=== PATIENT | male | born 1945 | race Caucasian/White ===

== ENCOUNTER 2017-07-20 10:39 | Outpatient (CLI) | payer MEDICARE, BC ==
--- NOTE | 2017-07-20 13:02 | RAD ---
TWO VIEWS CHEST: Date: 07-20-17 Comparison: 07-12-16, 01-12-17 History: Dyspnea. FINDINGS: There is a hazy area of increased density overlying the left hilar shadow, worsening when compared to prior imaging. This is suspicious for a mass in the superior segment of the left lower lobe. Midline sternotomy wires are present. There is increased linear interstitial density. There is no lobar cons olidation, alveolar edema, or pleural fluid. IMPRESSION: Increasing left perihilar density is suspicious for a mass in the region of the superior segment left lower lobe. CT examination of the chest is advised. Dr. Downs made aware at 10:55 a.m. 07-20-17. Code CR POS: ANA
== END 2017-07-20 10:40 | disposition home or self-care (01) ==
LOC: RAD 10:39
PROVIDERS: ATTEND Internal Medicine Pulmonary Disease
DX: R06.00 Dyspnea, unspecified (principal); J98.4 Other disorders of lung
CPT/HCPCS: 71046

== ENCOUNTER 2017-07-26 12:25 | Outpatient (CLI) | payer MEDICARE, BC ==
[2017-07-26 12:58] LABS: Estimated GFR-MDRD - POC Greater than 90
[2017-07-26] MEDS ORDERED: Iopamidol 370 76% 100 ML VIAL ONE (14:47)
--- NOTE | 2017-07-26 14:49 | CT ---
CT CHEST WITH CONTRAST: INDICATIONS: Recent chest film from 07/20/2017 revealed increased density overlying the left hilar region. The reena bustillo also has a history of left lung cancer, which was followed by this PET scan. COMPARISON: PET CT from 09/30/2015. TECHNIQUE: Multiple axial tomograms obtained through the chest with IV enhancement. FINDINGS: There is an enlarging mass, which is pleural-based, at the posterior left mid lung. This is at the s ite of a previously described pulmonary mass noted on the PET CT of 09/30/2015. The mass at that osman e showed very little activity on PET, with an SUV of 1.8. It measured approximately 1.7 cm in width, in the axial plane, at that time. Today, this mass density has enlarged, measuring 3.4 x 2.3 cm, in the axial plane. Review of the lung jiang show numerous small pulmonary nodules, several of which appear to be calcif ied. These tiny nodules are most numerous in the right upper lobe and measure in the 1 to 3 mm range . These tiny nodules were present on the prior CT of 09/30/2015 but are better seen and characterize d today. There are other scattered tiny nodules throughout both lung jiang, although these nodules appear most numerous in the right lung. There is a new area of ground glass nodular opacity, measuring 1.8 cm in the axial plane, located in the right upper lobe, today. This is suspicious for a new focus of neoplasm. There is a nodule in the right middle lobe, which measures approximately 5 mm. This small nodule is stable when compared to the prior CT. There are nonspecific mediastinal lymph nodes. These appear stable from the prior exam. The thyroid is mildly prominent, and there are several small thyroid nodules. The right lobe of the thyroid is larger than the left. The thyroid findings appear stable. Images through the upper abdomen reveal hepatic cysts in the mid right lobe, which is a stable findin g. A large right renal cyst is partially imaged, and this is a stable finding. Sliding diaphragmati c hernia. There appears to be mesenteric fat herniated through the diaphragm, along the right side o f the lower esophagus, and there is a fluid dense area seen abutting the lower esophagus, on the righ t, of uncertain significance. IMPRESSION: 1. A pleural-based mass in the mid left chest, posteriorly, has increased in size when compared to P ET CT exam of 09/30/2015. This is concerning for neoplasm. 2. There is a new ground glass nodular density in the right upper lobe, measuring 1.8 cm, suspicious for neoplasm. 3. Numerous small pulmonary nodules are again noted, which appear stable. 4. Sliding diaphragmatic hernia. Mesenteric fat herniates along the right side of the lower esophag us, and there is an area of fluid density adjacent to the lower esophagus, on the right, within this mesenteric fat. 5. There are other stable findings, as described above. POS: ANA
== END 2017-07-26 12:26 | disposition home or self-care (01) ==
LOC: CT 12:25
PROVIDERS: ATTEND Internal Medicine Pulmonary Disease
DX: R91.8 Other nonspecific abnormal finding of lung field (principal); K44.9 Diaphragmatic hernia without obstruction or gangrene
CPT/HCPCS: 71260; 82565

== ENCOUNTER 2017-08-04 12:23 | Outpatient (CLI) | payer MEDICARE, BC ==
--- NOTE | 2017-08-04 16:06 | PET ---
PET CT: 08/04/17 HISTORY: 72-year-old male with lung cancer, abnormal CT scan. TECHNIQUE: PET scan with CT attenuation correction was performed from the base of the brain to the proximal thig hs following the intravenous administration of 13 millicuries of O89-torzbdivcdoywlknae in the right antecubital fossa. Imaging was performed after an uptake interval of 43 minutes. COMPARISON: PET CT dated 10/01/15. CORRELATION: CT chest dated 07/26/17. FINDINGS: There is interval development of hypermetabolic activity seen in the enlarging left lower lobe mass s een on the CT scan with an SUV of 6.5. No milan hypermetabolism is seen in the hilar regions, mediast inum, axillary, cervical, abdominopelvic or inguinal regions. No hypermetabolic liver, adrenal or skeletal lesions are seen. There is physiologic activity in the GI and tracts and the visualized portions of the brain. The CT scan used for attenuation correction demonstrates no evidence of pleural effusions or ascites. A right sided renal cyst is present. There is colonic diverticulosis. IMPRESSION: Left lung malignancy. No evidence of metastatic disease. POS: [facility]
== END 2017-08-04 12:24 | disposition home or self-care (01) ==
LOC: PET 12:23
PROVIDERS: ATTEND Internal Medicine Pulmonary Disease
DX: R91.8 Other nonspecific abnormal finding of lung field (principal); C34.32 Malignant neoplasm of lower lobe, left bronchus or lung
CPT/HCPCS: 78815; A9552

== ENCOUNTER 2017-08-12 15:20 | Outpatient (CLI) | payer MEDICARE, BC ==
[2017-08-12 16:37] LABS: Hemoglobin 14.5 g/dL (14.0-18.0); Mean Corpuscular HGB CONC 33.8 g/dL (32.0-36.0); Mean Corpuscular Hemoglobin 32.6 pg (27.0-31.0); Mean Corpuscular Volume 96.4 fl (80.0-94.0); Mean Platelet Volume 8.3 fL (7.4-10.4); Platelet Count 220 thou/uL (130-400); RBC Distribution Width 11.8 % (11.5-14.5); Red Blood Cell (RBC) Count 4.44 mill/uL (4.70-6.10); White Blood Cell (WBC) Count 7.8 thou/uL (4.8-10.8)
[2017-08-12 16:57] LABS: Anion Gap 9 mmol/L (10-20); BUN (Urea Nitrogen) 13 mg/dL (8.4-25.7); Calc. Creatinine Clearance 0 mL/min (70-130); Calcium 9.4 mg/dL (7.8-10.44); Carbon Dioxide 30 mmol/L (23-31); Chloride 105 mmol/L (98-107); Estimated GFR-MDRD Greater than 90; Glucose 90 mg/dL (80-115); Potassium 4.2 mmol/L (3.5-5.1); Sodium 140 mmol/L (136-145)
--- NOTE | 2017-12-13 21:44 | EKG ---
Test Reason : Blood Pressure : / mmHG Vent. Rate : 069 BPM Atrial Rate : 069 BPM P-R Int : 152 ms QRS Dur : 086 ms QT Int : 410 ms P-R-T Axes : 054 032 052 degrees QTc Int : 439 ms Normal sinus rhythm Possible Inferior infarct , age undetermined Abnormal ECG Confirmed by RIGOBERTO CORREA, GAUTAM ([id number]) on 12/13/2017 9:44:03 PM Referred By: ELLEN Confirmed By:GAUTAM FRANKLIN MD
== END 2017-08-12 15:21 | disposition home or self-care (01) ==
LOC: LABBT 15:20
PROVIDERS: ATTEND Thoracic Surgery (Cardiothoracic Vascular Surgery)
DX: Z01.818 Encounter for other preprocedural examination (principal); R91.8 Other nonspecific abnormal finding of lung field
CPT/HCPCS: 80048; 85027; 86850; 86900; 86901; 93005; 93010

== ENCOUNTER 2017-08-12 15:30 | Inpatient (IN) | payer MEDICARE, BC ==
[2017-08-16] MEDS ORDERED: CEFAZOLIN/Water 2 GM/20 ML SYRINGE ONE (05:56)
[2017-08-16] MEDS ORDERED: Fentanyl 100 MCG/2 ML VIAL ONE ×3 (06:14→10:24)
[2017-08-16] MEDS ORDERED: Midazolam HCl 2 mg/2 ml Vial ONE (06:14)
[2017-08-16] MEDS ORDERED: Fentanyl 250 MCG/5 ML VIAL ONE (06:18)
[2017-08-16] MEDS ORDERED: Naloxone HCl 0.4 mg/ml Vial IVP PRN (07:00)
[2017-08-16] MEDS ORDERED: fentaNYL Citrate/PF 1,250 MCG, Bupivacaine 25 ML in Sodium Chloride 0.9% 250 ML 200 ML EPIDURAL SCH (07:00)
[2017-08-16] MEDS ORDERED: Naloxone HCl 0.4 mg/ml Vial IV PRN (07:00)
[2017-08-16] MEDS ORDERED: diphenhydrAMINE 25 MG CAP PO PRN (07:00)
[2017-08-16] MEDS ORDERED: Zolpidem Tartrate 5 MG TAB PO PRN (07:00)
[2017-08-16] MEDS ORDERED: Bupivacaine 0.25% 10 ML VIAL EPIDURAL PRN (07:00)
[2017-08-16] MEDS ORDERED: Ondansetron HCl/PF 4 MG/2 ML Vial IVP PRN ×3 (07:00→11:52)
[2017-08-16] MEDS ORDERED: HYDROcodone/Acetaminophen 5/325 mg Tablet PO PRN ×3 (07:00→11:52)
[2017-08-16] MEDS ORDERED: diphenhydrAMINE 50 MG/ML VIAL IVP PRN (07:00)
[2017-08-16] MEDS ORDERED: Promethazine HCl 25 MG/ML VIAL IM PRN ×2 (07:00→09:43)
[2017-08-16] MEDS ORDERED: Promethazine HCl 25 MG SUPP PR PRN (07:00)
[2017-08-16] MEDS ORDERED: traMADol HCl 50 MG TAB PO PRN ×2 (07:00)
[2017-08-16] MEDS ORDERED: Hydrocerin (Eucerin) Cream 120 gm Jar TOP PRN (07:00)
[2017-08-16] MEDS ORDERED: diphenhydrAMINE 50 MG/ML VIAL IM PRN (07:00)
[2017-08-16] MEDS ORDERED: Bupivacaine/Epinephrine 0.25% 30 ML VIAL ONE (09:12)
[2017-08-16] MEDS ORDERED: Promethazine HCl 25 MG/ML VIAL SLOW IVP PRN (09:43)
--- NOTE | 2017-08-16 11:30 | PRG ---
DATE OF SERVICE: 08/16/2017 This is a 72-year-old gentleman status post left lower lobectomy with lymph node dissection for slowl y growing left lower lung superior segment mass. Initial biopsy shows adenocarcinoma. Awaiting shayy bowers. He is in the recovery room having some pain. He has an epidural catheter in place. PHYSICAL EXAMINATION: VITAL SIGNS: Pulse is 80, sats are 95%, blood pressure 138/80. CHEST: Minimal rhonchi. CARDIAC: Normal S1-S2. No gallops. ABDOMEN: Soft, no mass. IMPRESSION: 1. Former smoker. 2. Left lower lung lobectomy. 3. Coronary artery disease. 4. Diabetes. 5. Anxiety. PLAN: Continue pain relief, supportive care. Await final path report. I will follow.
[2017-08-16] MEDS ORDERED: Promethazine HCl 25 MG/ML VIAL IM/IV PRN (11:52)
[2017-08-16] MEDS ORDERED: Insulin Regular 300 UNITS/3 ML VIAL SC PRN (11:52)
[2017-08-16] MEDS: Ketorolac Tromethamine 30 MG/ML VIAL IVP SCH ×2 (11:59→18:22)
--- NOTE | 2017-08-16 12:15 | OP ---
PREOPERATIVE DIAGNOSIS: Left lower lobe mass. POSTOPERATIVE DIAGNOSIS: Adenocarcinoma of the lung. PROCEDURE: Left lower lobectomy, mediastinal lymph node dissection. SURGEON: Dr. Butler. ESTIMATED BLOOD LOSS: Less than 100. ANESTHESIA: General. FINDINGS: Patient had a confined mass in the left lower lobe but no adherence between that lung and the chest wall. He had a few filmy adhesions at the apex of the chest related to previous left inter nal mammary artery harvesting. He did have a hard and mediastinal node at the level 4 that was adher ent, but not growing into the recurrent laryngeal nerve. PROCEDURE IN DETAIL: After adequate anesthesia had been obtained, patient was prepped and draped in the right lateral decubitus position and a muscle-sparing posterolateral fifth intercostal space thor acotomy was carried out. This was the level of fissure. The inferior pulmonary ligament was mobiliz ed, there were no nodes in this area. Fissure was then completed with Bovie. A vascular stapler was used to take the major arterial branch to the lower lobe and then two smaller branches were ligated and clipped these being about 2 mm to 3 mm max. Following this, the inferior pulmonary vein was divi ded with vascular stapler. Bronchus was then controlled with a green staple load and after ensuring good inflation of the upper lobe, the bronchus was divided. Following this, mediastinal node dissect ion was carried out. A pleural flap was created superiorly. Chest tube x2 were placed. Following t his, the ribs were reapproximated with double-stranded catgut suture after ensuring no air leakage fr om bronchial stump. After good hemostasis was obtained, the pericostal sutures were tied. Muscle la yers loosely reapproximated and the subcutaneous tissue and skin closed. Patient is to be taken to t he recovery room in guarded condition.
[2017-08-16] MEDS: HYDROcodone/Acetaminophen 5/325 mg Tablet PO PRN ×3 (12:46→22:51)
--- NOTE | 2017-08-16 13:48 | RAD ---
RADIOGRAPH CHEST 1 VIEW: Date: 08/16/2017 Time: 11:27 a.m. HISTORY: A 72-year-old male, status post thoracotomy. COMPARISON: 07/20/2017 FINDINGS: Again noted are the sternotomy wires. There are two new left-sided chest tubes, entering at the left base. One of the distal tips overlies the left mid to lower mediastinum, while the other ascends to the left upper mediastinal region. No pulmonary edema. There is new thickening of the left lateral pleural stripe, consistent with fluid. No consolidation. No pneumothorax visible. IMPRESSION: 1. Status post placement of two left-sided chest tubes. 2. Small amount of left pleural fluid. DONTE [] POS: ANA
[2017-08-16] MEDS: CEFAZOLIN/Water 2 GM/20 ML SYRINGE SLOW IVP SCH ×2 (14:09→21:42)
[2017-08-16] MEDS ORDERED: ePHEDrine/0.9% NaCl/PF SYRINGE 50 mg/10 ml ONE (16:08)
[2017-08-16] MEDS ORDERED: PHENYLEPHRINE-NS 100 MCG/ML 10 ML SYRINGE ONE (16:08)
[2017-08-16] MEDS ORDERED: Glycopyrrolate 0.2 MG/ML 5 ML SYRINGE ONE (16:08)
[2017-08-16] MEDS ORDERED: Dexamethasone 20 MG/5 ML VIAL ONE (16:08)
[2017-08-16] MEDS ORDERED: Lidocaine 1% PF 5 ML VIAL ONE (16:08)
[2017-08-16] MEDS ORDERED: PROPOFOL 200 MG/20 ML VIAL ONE (16:08)
[2017-08-16] MEDS ORDERED: Labetalol 100 MG/20 ML MDV ONE (16:08)
[2017-08-16] MEDS: Sodium Chloride 0.9% 1,000 ML IV SCH ×2 (18:07→21:48)
[2017-08-16] MEDS: ALPRAZolam 0.25 MG TAB PO SCH (21:43)
[2017-08-16] MEDS: Aspirin 81 mg Enteric Coated Tablet PO SCH (21:43)
[2017-08-17] MEDS: Ketorolac Tromethamine 30 MG/ML VIAL IVP SCH ×5 (00:19→23:03)
[2017-08-17 05:01] LABS: #Lymphocytes 1.3 thou/uL (1.20-3.40); #Monocytes 1.5 thou/uL (0.11-0.59); #Neutrophils 10.7 thou/uL (1.40-6.50); %Basophils 0.1 % (0.0-1.0); %Eosinophils 0.1 % (0.0-10.0); %Lymphocytes 9.7 % (21.0-51.0); %Monocytes 11.4 % (0.0-10.0); %Neutrophils 78.8 % (42.0-75.0); Hemoglobin 13.8 g/dL (14.0-18.0); Mean Corpuscular Hemoglobin 33.5 pg (27.0-31.0); Mean Corpuscular Volume 98.5 fl (80.0-94.0); Platelet Count 211 thou/uL (130-400); RBC Distribution Width 11.9 % (11.5-14.5); Red Blood Cell (RBC) Count 4.13 mill/uL (4.70-6.10); White Blood Cell (WBC) Count 13.6 thou/uL (4.8-10.8)
[2017-08-17 05:03] LABS: Anion Gap 11 mmol/L (10-20); BUN (Urea Nitrogen) 13 mg/dL (8.4-25.7); Calc. Creatinine Clearance 106 mL/min (70-130); Calcium 8.2 mg/dL (7.8-10.44); Carbon Dioxide 28 mmol/L (23-31); Chloride 105 mmol/L (98-107); Estimated GFR-MDRD Greater than 90; Glucose 130 mg/dL (80-115); Potassium 4.6 mmol/L (3.5-5.1); Sodium 139 mmol/L (136-145)
[2017-08-17] MEDS: CEFAZOLIN/Water 2 GM/20 ML SYRINGE SLOW IVP SCH (06:38)
[2017-08-17] MEDS: ALPRAZolam 0.25 MG TAB PO SCH ×2 (08:22→20:57)
[2017-08-17] MEDS: Metoprolol Tartrate 25 MG TAB PO SCH ×2 (08:23→21:03)
[2017-08-17] MEDS: Venlafaxine HCl 37.5 MG TAB PO SCH (08:23)
--- NOTE | 2017-08-17 09:16 | RAD ---
PORTABLE AP CHEST: Date: 08/17/17 HISTORY: Post thoracotomy. COMPARISON: 08/16/17. FINDINGS: Two left-sided thoracostomy tubes remain in place and unchanged in position. No pleural fluid is seen on the left. There is minimal pleural based density along the left lateral chest wall which may be r elated to mild pleural thickening. There is atelectasis present at the right lung base. Cardiac silho uette is magnified by projection, but does appear mildly enlarged. Pulmonary vasculature is within no rmal limits. Postsurgical changes related to median sternotomy are again seen. Metallic wires overlie the right chest. Chest is not significantly changed when compared to the prior exam. IMPRESSION: 1. Left-sided thoracostomy tubes remain unchanged in position. 2. Atelectasis right lung base with questionable tiny right pleural effusion. POS: [facility]
--- NOTE | 2017-08-17 11:16 | PRG ---
DATE OF SERVICE: 08/17/2017 SUBJECTIVE: This morning, he is doing well. Awake, alert and responsive. Chest x-ray is clear. He denies any pain or discomfort. OBJECTIVE: VITAL SIGNS: Blood pressure is 124/77, sats are 98% on room air, pulse 108, temperature 98. CHEST: Reveals no wheezing or crackles. CARDIAC: Normal S1, S2. No gallops. ABDOMEN: No masses. LABORATORY DATA: White count 0.5. IMPRESSION: Status post right lower lobectomy, former smoker. PLAN: Awaiting path. Transferred out of the ICU. Continue to follow.
[2017-08-17] MEDS ORDERED: Enoxaparin Sodium 30 MG/0.3 ML SYRINGE SC SCH ×2 (14:00→15:00)
[2017-08-17] MEDS: HYDROcodone/Acetaminophen 5/325 mg Tablet PO PRN (14:18)
[2017-08-17] MEDS: Aspirin 81 mg Enteric Coated Tablet PO SCH (20:57)
[2017-08-18] MEDS: Ketorolac Tromethamine 30 MG/ML VIAL IVP SCH (05:15)
[2017-08-18] MEDS ORDERED: Metoprolol Tartrate 25 MG TAB PO SCH ×2 (06:26→06:45)
[2017-08-18] MEDS: Metoprolol Tartrate 25 MG TAB PO SCH ×2 (09:44→20:23)
[2017-08-18] MEDS: Enoxaparin Sodium 30 MG/0.3 ML SYRINGE SC SCH (09:53)
[2017-08-18] MEDS: ALPRAZolam 0.25 MG TAB PO SCH ×2 (09:53→20:23)
[2017-08-18] MEDS: Venlafaxine HCl 37.5 MG TAB PO SCH (09:53)
--- NOTE | 2017-08-18 10:10 | PRG ---
DATE OF SERVICE: 08/18/2017 This morning he is awake, alert, responsive, still short of breath, still coughing some stuff, still having some pain. PHYSICAL EXAMINATION: VITAL SIGNS: Blood pressure 130/70, sats 90 on 2 liters . His temperature 98, pulse 109. CHEST: C hest reveals no wheezing or crackles. CARDIAC: Normal S1, S2. No gallops. ABDOMEN: Soft. His CT chest tube was not draining much fluid, his path shows adenocarcinoma with evidence of several lymph nodes that are involved. IMPRESSION: Left lower lung adenocarcinoma with a left hilar lymph node involvement along with a vis ceral pleural invasion. PLAN: Continue PT and supportive care. Hopefully, when stable outpatient referral to Oncology.
[2017-08-18] MEDS ORDERED: HYDROcodone/Acetaminophen 10/325 mg Tablet PO PRN ×2 (13:00→13:01)
[2017-08-18] MEDS ORDERED: Fentanyl 100 MCG/2 ML VIAL SLOW IVP PRN (13:01)
[2017-08-18] MEDS ORDERED: PARoxetine 20 MG TAB PO SCH ×2 (18:30→19:00)
[2017-08-18] MEDS ORDERED: BEER 1 CAN PO SCH (19:00)
[2017-08-18] MEDS: Aspirin 81 mg Enteric Coated Tablet PO SCH (20:23)
[2017-08-19] MEDS: ALPRAZolam 0.25 MG TAB PO SCH (08:48)
[2017-08-19] MEDS: BEER 1 CAN PO SCH ×2 (08:48→14:59)
[2017-08-19] MEDS: Enoxaparin Sodium 30 MG/0.3 ML SYRINGE SC SCH (08:50)
[2017-08-19] MEDS: Metoprolol Tartrate 25 MG TAB PO SCH (08:51)
[2017-08-19] MEDS ORDERED: PARoxetine 20 MG TAB PO SCH (09:00)
--- NOTE | 2017-08-19 09:39 | PRG ---
DATE OF SERVICE: 08/19/2017 He is awake, alert, responsive. PHYSICAL EXAMINATION: VITAL SIGNS: Blood pressure is 123/73, sats are 97% on room air, respiration 17, temperature 97. CHEST: Chest reveals decreased breath sounds, no wheezing. CARDIAC: Normal S1-S2. ABDOMEN: Soft, no masses. IMPRESSION: 1. The patient is status post left lower lobectomy adenocarcinoma with a hilar mets. 2. Coronary artery disease. PLAN: He appears to be stable enough to be discharged home. He will see us in the office in several weeks. Eventually Oncology consult.
[2017-08-19] MEDS: Venlafaxine HCl 37.5 MG TAB PO SCH (10:21)
[2017-08-19 16:25] VITALS: BMI 26.1
[2017-08-19 16:26] VITALS: BP 136/66; TEMP 98.1
--- NOTE | 2017-08-19 21:30 | DIS ---
This is a gentleman who underwent a left lower lobe lung resection, found to have moderate to poorly differentiated adenocarcinoma involving the visceral pleura with lymphovascular invasion. He had fou r lymph nodes out of 10 examined that had metastatic carcinoma including a level 4 mediastinal node, being a [id number] clinical stage and pathologic stage. His hospital course was unremarkable except for some confusion and chest tubes were removed on the day of discharge. He will follow up with myself and Dr. Downs in 2 weeks with the ultimate plan to have him evaluated by the Oncology Service.
== END 2017-08-19 17:07 | disposition home or self-care (01) | DRG 164 ==
LOC: SURG A 08-16 05:42 → CCU 08-16 11:34 → 2NO 08-17 10:28
PROVIDERS: ADMIT Thoracic Surgery (Cardiothoracic Vascular Surgery); ATTEND Thoracic Surgery (Cardiothoracic Vascular Surgery)
PROC: 0BTJ0ZZ Resection of Left Lower Lung Lobe, Open Approach (ICD-10-PCS; principal; 2017-08-16)
PROC: 07B70ZZ Excision of Thorax Lymphatic, Open Approach (ICD-10-PCS; 2017-08-16)
DX: C34.32 Malignant neoplasm of lower lobe, left bronchus or lung (principal); C77.1 Secondary and unspecified malignant neoplasm of intrathoracic lymph nodes; C78.2 Secondary malignant neoplasm of pleura; E11.9 Type 2 diabetes mellitus without complications; I25.10 Atherosclerotic heart disease of native coronary artery without angina pectoris; F17.210 Nicotine dependence, cigarettes, uncomplicated; F41.9 Anxiety disorder, unspecified
CPT/HCPCS: 36415; 36416; 71045; 80048; 85025; 88305; 88309; 88331; 88332; 94640; A4216; G8978-GP-CK; G8979-GP-CH; J1100; J1642; J1650; J1885; J2001; J2250; J2550; J2704; J3010; J3490; J7050; J7620

== ENCOUNTER 2017-11-01 07:48 | Outpatient (CLI) | payer MEDICARE, BC ==
--- NOTE | 2017-11-01 11:16 | CT ---
NONCONTRAST ENHANCED CT ABDOMEN AND PELVIS: HISTORY: The patient has a history of lung cancer, weight loss, and gastroesophageal reflux disease (R63.4 and K21.9). TECHNIQUE: Oral contrast was given. IV contrast was not given. FINDINGS: Noncontrast enhanced CT images of the abdomen and pelvis are obtained, as IV contrast was not given. Oral contrast was given. Images demonstrate a small left-sided pleural effusion. Some minimal areas of left pleural thickenin g are seen. The right lung base is well aerated. There is a large hiatal hernia. There is some mild thickening of the distal esophagus, compatible wi th likely esophagitis. The solid organs demonstrate a limited evaluation, as IV contrast was not given. There does appear t o be a hypodense area at the medial aspect of the left hepatic lobe, diameter measuring approximately 13 mm. This may represent a cyst. The pancreas is unremarkable. The adrenal glands are unremarkable. There is also an exophytic hypodense area at the upper posterior aspect of the right kidney, most com patible with a cortical cyst, diameter measuring 4 cm. No evidence of paraaortic lymphadenopathy is seen. There is a small umbilical hernia. No dilated loops of small bowel seen. A normal appendix is seen. Numerous descending colonic diverticula are visualized. Findings compatible with diverticulosis. No evidence of inguinal hernia seen. Atherosclerotic calcification of the abdominal aorta is seen. IMPRESSION: 1. Hiatal hernia. 2. Hypodense area seen in the liver and right kidney, most compatible with cyst. 3. Descending colonic diverticulosis. 4. Umbilical hernia. POS: [facility]
== END 2017-11-01 07:49 | disposition home or self-care (01) ==
LOC: CT 07:48
PROVIDERS: ATTEND Internal Medicine Hematology & Oncology
DX: K21.9 Gastro-esophageal reflux disease without esophagitis (principal); R63.4 Abnormal weight loss; K44.9 Diaphragmatic hernia without obstruction or gangrene; K42.9 Umbilical hernia without obstruction or gangrene; K57.30 Diverticulosis of large intestine without perforation or abscess without bleeding
CPT/HCPCS: 74176

== ENCOUNTER 2017-11-02 12:41 | Outpatient (CLI) | payer MEDICARE, BC ==
[~2017-11-02 12:41] MED LIST: Iopamidol 370 76% 100 ML VIAL ONE
[2017-11-02 13:27] LABS: Estimated GFR-MDRD - POC Greater than 90
--- NOTE | 2017-11-02 14:56 | CT ---
CT THORAX WITH IV CONTRAST: INDICATIONS: History of malignant neoplasm of the left lower lobe. COMPARISON: Prior CT thorax dated 07/26/[address] dated 09/30/2015. Comparisons are also made with a CT ne ck dated 09/18/2015. FINDINGS: Since the comparison examination, there has been interval performance of a left lower lobectomy. A s mall amount of pleural fluid is seen within the left lower hemithorax, consistent with the patient's recent postop state. There is some slight soft tissue nodularity seen within the left pleural fat on image 32 of series 6, which may be postoperative in nature; however, residual regional metastatic di sease cannot be entirely excluded. Ground glass pulmonary nodule within the right upper lobe is stab le to the comparison, dated 07/26/2017, measuring 1.9 x 2.1 cm in its greatest mediolateral and crani ocaudal dimensions, respectively. There is scattered emphysema. There are scattered calcified pulmonary nodules, suspicious for granul yimi. Noncalcified pulmonary nodule within the region of the lower right upper lobe, on image 32 of s eries 6, is stable, measuring 5 mm. There is a stable small to moderate sized hiatal hernia. Small right hepatic lobe/right renal cyst is stable. No definite acute osseous abnormality is evident. IMPRESSION: 1. Interval left lower lobectomy. 2. Small left-sided pleural effusion, likely post procedural in nature. 3. There is studded nodularity seen along the left pleural space, along the posterolateral aspect of the left hemithorax, which may be postoperative in nature; however, residual pleural-based metastati c disease cannot be entirely excluded. Recommend close followup. 4. Ground glass pulmonary nodule within the right upper lobe is stable, measuring 1.9 x 2.1 cm, to t he most recent comparison, dated 07/26/2017. 5. Stable 5 mm right upper lobe pulmonary nodule. 6. Stable hiatal hernia. right hepatic lobe/right renal cyst. Findings were called to Dr. Ward at 2:20 p.m. on 11/02/2017. CODE CR POS: [facility]
== END 2017-11-02 12:42 | disposition home or self-care (01) ==
LOC: SCSCT 12:41
PROVIDERS: ATTEND Internal Medicine Hematology & Oncology
DX: C34.32 Malignant neoplasm of lower lobe, left bronchus or lung (principal); J90 Pleural effusion, not elsewhere classified; R91.1 Solitary pulmonary nodule; K44.9 Diaphragmatic hernia without obstruction or gangrene; N28.1 Cyst of kidney, acquired; Z90.2 Acquired absence of lung [part of]
CPT/HCPCS: 71260; 82565

== ENCOUNTER 2018-05-29 15:37 | Outpatient (CLI) | payer MEDICARE, BC ==
--- NOTE | 2018-05-29 16:44 | RAD ---
CHEST TWO VIEWS: HISTORY: Adenocarcinoma, left lung. Check for pneumonia. Cough x2 weeks. COMPARISON: 08/17/2017 FINDINGS: Near complete opacification of the left lung. Subsequent limited evaluation of the left heart border . Chronic changes of right lung with mild hyperinflation is suggested. No pneumothorax or osseous a bnormality. IMPRESSION: Near complete opacification of the left lung. Findings may be secondary to tumor with associated pos t obstructive atelectasis and/or pneumonia. CT chest if clinically warranted. CODE T POS: ANA
== END 2018-05-29 15:38 | disposition home or self-care (01) ==
LOC: BICRAD 15:37
PROVIDERS: ATTEND Family Medicine
DX: C34.92 Malignant neoplasm of unspecified part of left bronchus or lung (principal); R91.8 Other nonspecific abnormal finding of lung field; Z11.59 Encounter for screening for other viral diseases; I10 Essential (primary) hypertension; R73.03 Prediabetes; E78.5 Hyperlipidemia, unspecified
CPT/HCPCS: 36415; 71046; 80053; 80061; 83036; 83880; 85025; 86803

== ENCOUNTER 2018-05-30 12:52 | Outpatient (CLI) | payer MEDICARE, BC ==
--- NOTE | 2018-05-30 14:42 | CT ---
CT OF CHEST PERFORMED WITH INTRAVENOUS CONTRAST ENHANCEMENT: HISTORY: Adenocarcinoma of left lung with development of opacification of the left hemithorax. COMPARISON: Previous CT study of 11/02/2017. FINDINGS: There has been a definite progression of disease as compared to the prior examination. There are now multiple right-sided pulmonary nodules present. Most of these are subcentimeter in size. One of th e larger lesions is approximately 11 mm in size within the right lower lobe. There is no right-sided effusion present. On the left side, there is now essentially complete opacification of the left hemithorax. The patien t had previously undergone a left lower lobe lobectomy. There is now a combination of collapse of th e left upper lobe and what appears to be consolidated lung which probably just represents tumor. There has been interval slight increase in size of some of the mediastinal lymph nodes. This is best seen in the right paratracheal region where there are some nodes that were in the 6 mm range on the prior examination now measuring 8-9 mm. Postop sternotomy changes are present. A cyst within the do me of the liver is a stable finding. Hiatal hernia is again seen. Review of osseous structures shows some arthritic changes of the spine. No lytic or blastic bony l esion seen. IMPRESSION: The patient is status post a left lower lobe lobectomy. There has now been development of a very l arge left pleural effusion occupying the entire left hemithorax. There is collapsed and consolidated -appearing lung which probably represents tumor infiltration within the residual lung tissue. There are also now multiple right-sided pulmonary nodules present and slight increase in size of some of th e mediastinal lymph nodes. POS: [facility]
== END 2018-05-30 12:53 | disposition home or self-care (01) ==
LOC: SCSCT 12:52
PROVIDERS: ATTEND Family Medicine
DX: C34.92 Malignant neoplasm of unspecified part of left bronchus or lung (principal); J90 Pleural effusion, not elsewhere classified; R91.8 Other nonspecific abnormal finding of lung field
CPT/HCPCS: 71260

== ENCOUNTER → 2018-06-01 | Day surgery (SDC) | payer MEDICARE, BC ==
[~2018-06-01] MED LIST changes: +Heparin 10,000 UNITS/ 10 ML VIAL ONE; -Iopamidol 370 76% 100 ML VIAL ONE; +Lidocaine 1% (PF) 30 ML VIAL ONE
--- NOTE | 2018-06-01 08:59 | HP ---
HISTORY OF PRESENT ILLNESS: This is a 74-year-old gentleman, who underwent a CAT scan of his chest for difficulty breathing by Dr. Bush. CAT scan showed a very large left pleural effusion and evidence of left upper lung atelectatic area. He is having orthopnea and PND. He is to be seen in the day surgery tomorrow for an outpatient thoracentesis. History said that the patient is a pack a day smoker for 40 years, who was seen initially on 12/2015 for a 1.8 x 1.4 mass in the superior segment of left lower lung, seen on the CT. His PET scan was read as negative. He followed it for a period of almost a year and a half to two years when surprisingly the lesion got bigger. PET scan then showed clearly a neoplastic process. He underwent surgery, left lower lobectomy, found to be adenocarcinoma, but his mediastinum had positive lymph nodes. We had extensive discussion with the patient along with Dr. Ward in October of 2017 the need to proceed with radiation and chemotherapy. I am told the patient declined any formal treatment. He then went to see his primary care physician yesterday with orthopnea, PND, and cough productive of clear sputum, which showed a large left pleural effusion. PAST MEDICAL HISTORY: High cholesterol, hypertension, anxiety. PAST SURGICAL HISTORY: Left lower lobectomy for adenocarcinoma, previous carotid endarterectomy, previous CABG. MEDICATIONS: His list of medicine that had included; 1. Plavix. 2. Xanax. 3. Metoprolol 25. 4. Zolpidem 10. SOCIAL HISTORY: Worked in the mall. REVIEW OF SYSTEMS: Otherwise 10-point negative. PHYSICAL EXAMINATION: VITAL SIGNS: His sats 95 to 96, pulse 80, blood pressure . CHEST: Decreased breath sounds in the left lung. CARDIAC: Normal S1 and S2. No gallops. ABDOMEN: No masses. IMPRESSION: 1. Large left pleural effusion, probably metastatic adenocarcinoma, who is status post coronary artery bypass graft. 2. Status post carotid endarterectomy. Outpatient thoracentesis to perform. Further recommendations as above. Job ID: [id number]
--- NOTE | 2018-06-01 09:44 | OP ---
DATE OF PROCEDURE: 06/01/2018 PROCEDURE PERFORMED: Thoracentesis. INDICATION: Massive pleural effusion, probably metastatic carcinoma. POST-THORACENTESIS DIAGNOSES: Massive pleural effusion, probably metastatic carcinoma. DESCRIPTION OF PROCEDURE: After informed consent, the patient was sitting upright in bed. The left posterior thorax was cleaned with chlorhexidine. 1% Xylocaine was infiltrated into the 8th intercostal space in the midscapular line, and the pleural cavity was entered in, and initially, 20 mL of sanguinous fluid was removed. Thereafter, using an 8-Greek catheter, a total of 2500 mL of bloody effusion was removed. The patient tolerated the procedure well. At the end of the procedure, he became diaphoretic, complained of left shoulder pain, probably from diaphragmatic irritation. His procedure was terminated because of his diaphoresis and pain, but he did not develop any difficulty breathing. His blood pressure postprocedure is 140/80, pulse is 80, and sat is 95%. A chest x-ray is pending. Pleural effusion sent for appropriate studies including cytology and culture. BRIEF DISCHARGE NOTE: The patient tolerated the procedure well. Results made available to the patient and the family. Further recommendation as above. I had a lengthy discussion with the patient this morning, who was stated that he did not want any chemotherapy to put any portions in his body. He was trying holistic medication and treatment. I once again strongly advised him to see the oncologist to see what can be done to relieve some of his symptoms and problems. More than likely, he is going to need a pleural catheter to continue drainage of his recurrent pleural effusion. Job ID: [id number]
[2018-06-01 10:14] LABS: Fluid, Triglycerides 33 mg/dL (Not Available); Pleural Fluid, Amylase Less than 30 U/L (Not Available); Pleural Fluid, Glucose 104 mg/dL; Pleural Fluid, LDH 1049 U/L (Not Available); Pleural Fluid, Protein 4.1 g/dL
[2018-06-01 10:25] LABS: BF Color Yellow; Body Fluid Source THORACENTESIS FLD; Clarity Hazy (Clear); RBC Background Count 0.004; Tube # 3
[2018-06-01 10:26] LABS: RBC Count-Automated 10000 /cumm; WBC/NonHematic-Auto 3210 /cumm
--- NOTE | 2018-06-01 10:47 | RAD ---
CHEST 1 VIEW: HISTORY: Thoracentesis. COMPARISON: CT of the chest 05/30/2018. FINDINGS: There is extensive volume loss throughout the left lower lobe. There is a large layering left pleura l effusion. There is an infiltrative process of the left lower lobe that is poorly defined on this r adiograph. The right lung is relatively clear. IMPRESSION: Extensive volume loss throughout the left lower lobe of concern for infiltrative tumor in the left lo wer lobe with layering left effusion. POS: ANA
[2018-06-01 12:25] LABS: BF Segmented Neutrophils 3 %; Cell Count Non Hematic 16 %; Lymphocytes 81 %
== END ==
LOC: SDC 08:19
PROVIDERS: ATTEND Internal Medicine Pulmonary Disease
PROC: 0W9B3ZZ Drainage of Left Pleural Cavity, Percutaneous Approach (ICD-10-PCS; principal; 2018-06-01)
DX: C34.32 Malignant neoplasm of lower lobe, left bronchus or lung (principal); J91.0 Malignant pleural effusion; F17.210 Nicotine dependence, cigarettes, uncomplicated; E78.00 Pure hypercholesterolemia, unspecified; I10 Essential (primary) hypertension; F41.9 Anxiety disorder, unspecified; Z79.01 Long term (current) use of anticoagulants; Z79.899 Other long term (current) drug therapy; Z90.2 Acquired absence of lung [part of]; Z95.1 Presence of aortocoronary bypass graft
CPT/HCPCS: 32554; 71045; 82150; 82945; 83615; 83986; 84157; 84478; 85060; 87070; 87116; 87205; 87206; 88112; 88305; 88341; 88342; 89051; J1642; J1644; J2001

== ENCOUNTER 2018-06-05 07:58 | Outpatient (CLI) | payer MEDICARE, BC ==
--- NOTE | 2018-06-05 10:16 | CT ---
PRE AND POST CONTRAST ENHANCED CT BRAIN: History: Lung cancer. Staging. Evaluate for intracranial pathology. Technique: Pre and post contrast enhanced CT of the brain obtained. The patient received 70 ml of Iso hai 370 intravenously. Delayed images obtained. FINDINGS: CT images demonstrate mild cortical atrophy. No evidence of acute intracranial masses, hemorrhages, s trokes or contusions seen. No evidence of enhancing intracranial mass lesions to suggest metastatic d isease. IMPRESSION: Unremarkable pre and post contrast enhanced CT images of the brain. POS: ANA
[2018-06-05] MEDS ORDERED: ISOVUE-370 76%-LOCM 1 ML ONE (12:55)
== END 2018-06-05 07:59 | disposition home or self-care (01) ==
LOC: BICCT 07:58
PROVIDERS: ATTEND Internal Medicine Hematology & Oncology
DX: C34.92 Malignant neoplasm of unspecified part of left bronchus or lung (principal)
CPT/HCPCS: 70470; Q9966

== ENCOUNTER 2018-06-27 14:02 | Outpatient (CLI) | payer MEDICARE, BC ==
--- NOTE | 2018-06-27 15:13 | RAD ---
CHEST TWO VIEWS: History: Lung cancer. Comparison: 06-01-18 FINDINGS: Cardiac silhouette remains predominately obscured by opacity at the left base that has the appearance of an elevated hemidiaphragm, pleural fluid, and patchy infiltrate. Pulmonary vasculature is engorge d. ===== than the prior study based on the right lung. Calcified granulomata are consistent with heal ed granulomatous disease. Slight leftward shift of the mediastinum. No evidence of pneumothorax. IMPRESSION: 1. Slight interval increase in pulmonary vascular congestion. 2. Post-operative changes to the left chest with extensive opacity throughout the left inferior hemit horax is stable. Right lung remains clear. POS: [facility]
== END 2018-06-27 14:03 | disposition home or self-care (01) ==
LOC: BICRAD 14:02
PROVIDERS: ATTEND Internal Medicine Hematology & Oncology
DX: C34.90 Malignant neoplasm of unspecified part of unspecified bronchus or lung (principal); R09.89 Other specified symptoms and signs involving the circulatory and respiratory systems; R91.8 Other nonspecific abnormal finding of lung field; Z98.890 Other specified postprocedural states
CPT/HCPCS: 36415; 71046; 80053; 82248; 83615; 84100; 84550

== ENCOUNTER 2018-07-14 08:14 | Day surgery (SDC) | payer MEDICARE, BC ==
[2018-07-13 12:23] VITALS: BMI 25.8
[2018-07-14 08:58] LABS: #Eosinphils 0.2 thou/uL (0.0-0.7); #Lymphocytes 1.1 thou/uL (1.20-3.40); #Monocytes 1.3 thou/uL (0.11-0.59); #Neutrophils 9.8 thou/uL (1.40-6.50); %Basophils 0.2 % (0.0-1.0); %Eosinophils 1.3 % (0.0-10.0); %Lymphocytes 9.1 % (21.0-51.0); %Monocytes 10.3 % (0.0-10.0); %Neutrophils 79.1 % (42.0-75.0); Mean Corpuscular Hemoglobin 29.4 pg (27.0-31.0); Mean Corpuscular Volume 92.1 fL (78.0-98.0); Mean Platelet Volume 6.9 fL (7.4-10.4); Platelet Count 360 thou/uL (130-400); RBC Distribution Width 14.5 % (11.5-14.5); Red Blood Cell (RBC) Count 3.73 mill/uL (4.70-6.10); White Blood Cell (WBC) Count 12.4 thou/uL (4.8-10.8)
[2018-07-14 09:14] LABS: Anion Gap 10 mmol/L (10-20); BUN (Urea Nitrogen) 14 mg/dL (8.4-25.7); Calc. Creatinine Clearance 91 mL/min (70-130); Carbon Dioxide 27 mmol/L (23-31); Chloride 106 mmol/L (98-107); Estimated GFR-MDRD Greater than 90; Glucose 124 mg/dL (83-110); Potassium 3.9 mmol/L (3.5-5.1); Sodium 139 mmol/L (136-145)
[2018-07-14] MEDS ORDERED: Lidocaine 1% w/Epinephrine 1:100K 20 ML VIAL ONE (09:40)
[2018-07-14] MEDS ORDERED: Fentanyl 100 MCG/2 ML VIAL ONE (09:53)
[2018-07-14] MEDS ORDERED: Ondansetron PF 4 MG/2 ML Vial ONE (13:29)
[2018-07-14] MEDS ORDERED: PHENYLEPHRINE-NS 100 MCG/ML 10 ML SYRINGE ONE (13:29)
[2018-07-14] MEDS ORDERED: Lidocaine 1% PF 5 ML VIAL ONE (13:29)
[2018-07-14] MEDS ORDERED: PROPOFOL 200 MG/20 ML VIAL ONE (13:29)
--- NOTE | 2018-07-14 16:49 | EKG ---
Test Reason : PREOP Blood Pressure : / mmHG Vent. Rate : 094 BPM Atrial Rate : 094 BPM P-R Int : 148 ms QRS Dur : 084 ms QT Int : 354 ms P-R-T Axes : 066 058 054 degrees QTc Int : 442 ms Normal sinus rhythm Normal ECG When compared with ECG of 12-AUG-2017 15:40, Borderline criteria for Inferior infarct are no longer Present Confirmed by DR. Tony BOYD ([id number]) on 07/14/2018 4:48:56 PM Referred By: ELLEN Confirmed By:DR. Tony BOYD
--- NOTE | 2018-07-17 10:35 | OP ---
DATE OF PROCEDURE: 07/14/2018 PREOPERATIVE DIAGNOSIS: Metastatic lung cancer. PROCEDURE PERFORMED: Insertion of right internal jugular vein MediPort. ANESTHESIA: IV sedation with local. DESCRIPTION OF PROCEDURE: After adequate IV sedation had been obtained, the patient was prepped and draped. Sterile ultrasound-guided puncture of the right internal jugular vein was performed. With fluoroscopic guidance, a wire was placed. Following this, lidocaine was used to infiltrate the skin over the anterior chest wall and over the clavicle and a tunnel was created. A peel-away sheath was introduced over the wire, and then through this peel-away sheath, the catheter was advanced into the right heart. It was then withdrawn until it was in the vena cava and then it was connected to the MediPort in the subcutaneous pocket, which was then closed after flushing. The patient tolerated the procedure well with minimal blood loss. Job ID: [id number]
== END 2018-07-14 13:58 | disposition home or self-care (01) ==
LOC: SDC 08:14
PROVIDERS: ATTEND Thoracic Surgery (Cardiothoracic Vascular Surgery)
PROC: 0JH63WZ Insertion of Totally Implantable Vascular Access Device into Chest Subcutaneous Tissue and Fascia, Percutaneous Approach (ICD-10-PCS; principal; 2018-07-14)
DX: C34.32 Malignant neoplasm of lower lobe, left bronchus or lung (principal); C79.9 Secondary malignant neoplasm of unspecified site; I25.110 Atherosclerotic heart disease of native coronary artery with unstable angina pectoris; E78.2 Mixed hyperlipidemia; Z87.891 Personal history of nicotine dependence; Z79.82 Long term (current) use of aspirin; Z79.2 Long term (current) use of antibiotics; Z79.899 Other long term (current) drug therapy; Z95.1 Presence of aortocoronary bypass graft
CPT/HCPCS: 36561; 80048; 85025; 93005; C1788; 36415; 93010; J1642; J2001; J2405; J2704; J3010

== ENCOUNTER 2018-08-28 08:14 | Outpatient (CLI) | payer MEDICARE, BC ==
--- NOTE | 2018-08-28 09:19 | CT ---
CT head with and without contrast: 08/28/2018 COMPARISON: 06/05/2018 HISTORY: Lung cancer restaging examination, prior chemotherapy TECHNIQUE: Axial CT imaging at 5 mm intervals from vertex through skull base with and without IV cont rast. FINDINGS: Imaged paranasal sinuses and mastoid air cells well-aerated. Atherosclerotic calcification of the cavernous carotid arteries noted. No acute osseous abnormality. Precontrast imaging demonstrates no intracranial hemorrhage, midline shift, or mass effect. No ventri cular enlargement. The postcontrast imaging demonstrates no abnormal enhancement to suggest the presence of intracranial metastatic disease. IMPRESSION: Unremarkable CT head with and without contrast.
--- NOTE | 2018-08-28 09:27 | CT ---
CT OF THE CHEST, ABDOMEN AND PELVIS WITH IV CONTRAST INDICATION: Lung cancer COMPARISON: CT of the thorax dated May 30, 2018 and November 02, 2017. CT the abdomen and pelvis with out contrast was reviewed from November 01, 2017. FINDINGS: CHEST: Lungs:There is improved aeration of the left lung. There is a decrease in size in the left-sided pleu ral effusion. Moderate left pleural effusion remains. There is residual perihilar soft tissue involving the left hilar region. This is markedly improved from prior examination with some residual endobronchial thickening involving the left distal mainstem bronchus on image 25 series 2 measuring 1.4 cm. There is stable postsurgical change of a left lower lobectomy. There has been significant red uction in size and near complete resolution of the scattered pulmonary nodules seen involving the right lung suspicious for metastatic disease. One of the index nodules within the right lower lobe pr eviously measuring 9 mm now measures 4 mm. Emphysematous change is stable. Several of the previously seen pulmonary nodules within the right lung are now small and calcified. Heart and great vessels:There are coronary artery and thoracic aortic calcifications. Pleural space: No pneumothorax. Additional findings: No pathologically enlarged lymph nodes are seen within the mediastinal, hilar o r axillary regions. This is markedly improved from the prior exam where there are mildly prominent lymph nodes within the mediastinum. ABDOMEN: Liver:There are stable hepatic cysts. Spleen:Normal appearing. Pancreas:Normal appearing. Adrenal Glands:Normal appearing. Kidneys:There is stable right renal cyst measuring 4.7 cm. Aorta:There are moderate calcifications involving the abdominal aorta without dilatation. Additional findings: No free fluid or free air. Pelvis: Bowel:There are scattered diverticula involving the colon without evidence of active diverticulitis. The small bowel is of normal caliber. There is a normal retrocecal appendix. There is stable moderate size hiatal hernia. Bladder:Normal appearing. Reproductive structures:Normal appearing. Rectum and perirectal soft tissues:Normal appearing. Additional findings: No free fluid or free air. Osseous structures: There is a stable small suspected bone island within the right inferior pubic body. No suspicious ost eolytic or osteoblastic lesion is identified. There are midline sternotomy changes involving the upper midline chest. There is scattered degenerative and osteoarthritic changes. IMPRESSION: 1. Findings consistent with response to therapy. There is markedly reduced soft tissue prominence inv olving the left hilar region suspicious for a left hilar malignancy. There is a residual endobronchial nodule within the distal left mainstem bronchus measuring 1.4 cm. There is soft tissue density surrounding the perihilar structures which may reflect residual malignancy or scar. There is markedly improved aeration of the left upper lobe and lingula. There is stable postsurgical change of the left lower lobectomy. There is now a moderate residual left-sided pleural effusion. There was a large left pleural effusion on the prior exam. There has been significant progressive improveme nt in the degree of pulmonary nodularity involving the right lung. Many of the pulmonary nodules are now small and calcified. A few pulmonary nodules remain. The largest index pulmonary nodule in th e right lower lobe has decreased in size from 9 mm to 4 mm. There has been resolution of the mild lymphadenopathy in the mediastinum. 2. No evidence of metastatic disease within the abdomen or pelvis. 3. No evidence of osseous metastatic disease.
--- NOTE | 2018-08-28 12:52 | NM ---
Whole body bone scan: 08/28/2018 COMPARISON: None HISTORY: Lung cancer, assess for metastatic disease TECHNIQUE: Anterior and posterior whole-body imaging obtained following the intravenous administratio n of 33 mCi technetium 99m-MDP FINDINGS: Physiologic activity within the kidneys and urinary bladder noted. No calvarial lesion identified. No pelvic, rib, or spine lesions. Long bones are unremarkable. IMPRESSION: No scintigraphic evidence of osseous metastatic disease.
[2018-08-28] MEDS ORDERED: Iopamidol 370 76% 100 ML VIAL ONE (17:04)
== END 2018-08-28 08:15 | disposition home or self-care (01) ==
LOC: CT 08:14
PROVIDERS: ATTEND Internal Medicine Hematology & Oncology
DX: C34.32 Malignant neoplasm of lower lobe, left bronchus or lung (principal); R91.8 Other nonspecific abnormal finding of lung field; J90 Pleural effusion, not elsewhere classified; Z79.899 Other long term (current) drug therapy; Z90.2 Acquired absence of lung [part of]
CPT/HCPCS: 70470; 71260; 74177; 78306; 80053; 82248; 83615; 84100; 84443; 84550; A9503; Q9967

== ENCOUNTER 2018-11-27 09:07 | Outpatient (CLI) | payer MEDICARE, BC ==
--- NOTE | 2018-11-27 12:21 | CT ---
CT CHEST AND ABDOMEN AND PELVIS WITH IV CONTRAST: Date: 11/27/18 PROVIDED CLINICAL HISTORY: Lung cancer. FINDINGS: Comparison made with study dated 08/28/18. The heart, pericardium, and great vessels demonstrate an unchanged CT appearance. Left perihilar parenchymal opacity appears decreased with respect to the prior examination. There is decrease in the amount of left pleural fluid. The previously described endobronchial nodule is not ap preciated on this examination. The right lung remains free of significant opacity with multiple predo minantly calcified tiny nodules again seen. There is no evidence for right pleural fluid. There is no evidence for pneumothorax. No evidence for mediastinal, right hilar, or axillary lymph node enlargement. Postoperative changes i nvolving left hemithorax appear stable. Liver, spleen, pancreas, kidneys, and adrenal glands demonstrate a stable CT appearance. Hiatal herni a is again seen. There is no bowel dilatation, inflammatory fat stranding, free fluid, or lymph node enlargement appar ent. Vascular calcifications are seen. Small, fat-containing umbilical hernia again noted. The osseous structures demonstrate no concerning lytic or blastic lesions. IMPRESSION: 1. Interval decrease in left perihilar parenchymal opacity and left pleural fluid, compatible with r esponse to therapy. 2. Additional significant interval change with respect to the prior examination is not apparent. POS: [facility]
[2018-11-27] MEDS ORDERED: ISOVUE-370 76%-LOCM 1 ML ONE (14:36)
== END 2018-11-27 09:08 | disposition home or self-care (01) ==
LOC: BICCT 09:07
PROVIDERS: ATTEND Internal Medicine Hematology & Oncology
DX: C34.32 Malignant neoplasm of lower lobe, left bronchus or lung (principal); R91.8 Other nonspecific abnormal finding of lung field; Z79.899 Other long term (current) drug therapy
CPT/HCPCS: 71260; 74177; 80053; 82248; 83615; 84100; 84443; 84550; Q9966

== ENCOUNTER 2019-03-30 08:34 | Outpatient (CLI) | payer MEDICARE, BC ==
--- NOTE | 2019-03-30 11:15 | CT ---
CT CHEST WITH IV CONTRAST: CT ABDOMEN WITH IV CONTRAST: CT PELVIS WITH IV CONTRAST: HISTORY: Lung cancer status post left lower lobectomy and chemotherapy. The patient is currently on immunother apy. COMPARISON: 11/27/2018 FINDINGS: Postop changes of left lower lobectomy are again seen. Left pleural effusion is stable. Left perihila r parenchymal opacity is unchanged. Mild left perihilar parenchymal opacity is unchanged. No mediasti nal, hilar or axillary mass or lymphadenopathy is seen. No pericardial or right sided pleural effusio n is noted. Multiple tiny nodules in the right lung are stable. A hiatal hernia is again noted. The liver, pancreas, spleen, adrenal glands and kidneys are also stab le. No free air, free fluid or lymphadenopathy is seen in the abdomen or pelvis. The prostate is enla rged. The small bowel loops are not abnormally dilated. A normal appearing appendix is seen. There is colon ic diverticulosis. Vascular calcifications are present without evidence of aneurysmal dilatation of t he thoracoabdominal aorta. There are degenerative changes in the thoracolumbar spine. No osteolytic o r osteoblastic lesions are seen. A small fat-containing umbilical hernia and bilateral fat-containing inguinal hernia are again seen. IMPRESSION: Stable examination. POS: [facility]
[2019-03-30] MEDS ORDERED: Iopamidol-370 76% 500 ML 1 ML ONE (11:39)
== END 2019-03-30 08:35 | disposition home or self-care (01) ==
LOC: BICCT 08:34
PROVIDERS: ATTEND Internal Medicine Hematology & Oncology
DX: C34.32 Malignant neoplasm of lower lobe, left bronchus or lung (principal)
CPT/HCPCS: 71260; 74177; Q9967

== ENCOUNTER 2019-06-22 08:36 | Outpatient (CLI) | payer MEDICARE, BC ==
[2019-06-22] MEDS ORDERED: Iopamidol-370 76% 500 ML 1 ML ONE (10:04)
--- NOTE | 2019-06-22 11:16 | CT ---
CT CHEST AND ABDOMEN WITH IV CONTRAST: Oral contrast was also administered. Multiplanar reconstruction. INDICATION: Malignant neoplasm of lung. Left lower lobe bronchus. The patient is on immunotherapy. COMPARISON: CT chest and abdomen 03/30/2019. FINDINGS: CT CHEST: Post lobectomy change on the left again noted with volume loss and slight shift of the mediastinum. Parenchymal stranding in the left upper and lower lung appears stable and is consistent with postoper ative change. Right lung is hyperexpanded. Numerous small nodules were again seen throughout the right lung involving all lobes of the right freddy g. These numerous nodules are too numerous to count and all measure in the 2-4 mm range. These nume marie tiny nodules are stable from 03/30/2019. There is bilateral pleural thickening slightly more pronounced in the left lung base and there is zack dence of loculated pleural fluid in the left lung base which is stable in appearance from 03/30/2019. There is a large fixed diaphragmatic hernia which is unchanged in appearance. A significant portion of the stomach is fixed above the diaphragm. The bony thorax appears unremarkable. No evidence of lytic or blastic process. The mediastinum is unremarkable with no evidence of adenopathy. The right lobe of the thyroid is mil dly prominent and heterogeneous but is stable. No axillary adenopathy. IMPRESSION: The chest findings are stable from 03/30/2019 with multiple findings as described above. CT ABDOMEN: The cyst in the mid liver probably superior segment right lobe is stable. The liver, spleen, and severino creas are unremarkable and stable in appearance. The large fixed diaphragmatic hernia is seen and de scribed on chest CT. Adrenal glands appear normal. Right renal cystic lesion is unchanged. The kidneys are otherwise unremarkable. The visualized bowel loops appear normal. Aorta shows atherosclerotic change without aneurysm. No a denopathy or mass lesion. Osseous structures unremarkable. IMPRESSION: No acute abdominal abnormality. Stable abdominal findings as detailed above. POS: [facility]
== END 2019-06-22 08:37 | disposition home or self-care (01) ==
LOC: BICCT 08:36
PROVIDERS: ATTEND Internal Medicine Hematology & Oncology
DX: C34.32 Malignant neoplasm of lower lobe, left bronchus or lung (principal)
CPT/HCPCS: 71260; 74160; Q9967

== ENCOUNTER 2019-10-12 07:59 | Outpatient (CLI) | payer MEDICARE, BC ==
--- NOTE | 2019-10-12 09:13 | CT ---
CT BRAIN WITH AND WITHOUT CONTRAST: DATE: 10/12/2019 HISTORY: 74-year-old male with lung cancer. Status post chemotherapy. Evaluate for brain metastasis. TECHNIQUE: Precontrast scan of the brain. IV injection of iodinated contrast media. Postcontrast scan of brain. COMPARISON: 08/28/2018 FINDINGS: There is no evidence of acute intra-axial or extra-axial hemorrhage. There is no midline shift or any other mass effect. There is no extra-axial fluid collection. There is no evidence of obstructive hydrocephalus. There is no abnormal enhancement or mass. Calvarium is intact. No evidence of brain or calvarial metastasis. No interval change overall. IMPRESSION: Negative
[2019-10-12] MEDS ORDERED: Iopamidol 370 76% 100 ML VIAL ONE (09:24)
--- NOTE | 2019-10-12 09:36 | CT ---
CT OF THE CHEST AND ABDOMEN AND PELVIS WITH IV CONTRAST: INDICATION: A 74-year-old male with a history of left lower lobe malignancy status post left lower lobectomy. Th e patient is developing anemia and there is concern for possible metastatic disease. The patient als o has complaints of bilateral hip and knee pain. The patient has concluded the chemotherapy and is c urrently receiving immunotherapy. The patient has a prior surgical history including a left lower lo bectomy, quadruple bypass, and left carotid endarterectomy. COMPARISON: Prior CT of the chest and abdomen dated June 22, 2019. Comparisons are also made with a prior CT of the chest, abdomen, and pelvis dated March 30, 2019, and a PET CT dated 08/04/2017. FINDINGS: The moderate to severe centrilobular and paraseptal emphysema is stable. Calcified granuloma of the right lung is stable. The postprocedural change of a left lower lobectomy is stable-appearing. The reticular scarring within the left mid lung without evidence of recurrent mass is stable. There is a persistent small left pleural effusion. No pathologically enlarged lymph nodes are evident. There are coronary artery and thoracic aorta nathaly cifications. There is postprocedural change of a prior coronary artery bypass. There is an enlarging sliding hiatal hernia. A small amount of fluid is seen within the hiatal herni a sac. Now the majority of the fundus, cardia, and gastric body are within the lower posterior media stinum. The hepatic cysts are stable-appearing. The large superior pole right renal cyst measuring 4.3 cm is stable-appearing. Other tiny cysts within the right kidney are stable-appearing. The left kidney i s normal-appearing. The adrenal glands, pancreas, and spleen are normal-appearing. There are moderate calcifications involving the abdominal aorta. There are a few scattered diverticula involving the colon without evidence of active diverticulitis, but then there is a normal appearance to the small bowel. There is a normal retrocecal appendix. The bladder, rectum, and perirectal soft tissues are normal-appearing. The prostate is mildly enlarg ed measuring 4.8 cm. There are bilateral fat-containing inguinal hernias. OSSEOUS STRUCTURES: There is no suspicious osteolytic or osteoblastic lesion. There is a small sclerotic lesion involvin g the inferior right pubic body which is stable likely reflecting a tiny bone island. There is scatt ered degenerative and osteoarthritic change. Specifically, no acute osseous abnormality is seen invo lving the hips. There are mild degenerative changes of the SI joints. There is an ununited transver se process on the right at L1. IMPRESSION: 1. No evidence to suggest recurrent disease or metastatic disease within the chest, abdomen, or pelv is. 2. Large sliding hiatal hernia. 3. Stable hepatic and right renal cysts. 4. Colonic diverticulosis. 5. Prostate enlargement. 6. Stable small bone island involving the inferior aspect of the right pubic body. No suspicious fi ndings to suggest osseous metastatic disease. POS: [facility]
--- NOTE | 2019-10-12 13:18 | NM ---
EXAM: NM Bone Scan STANDARD PROVIDED CLINICAL HISTORY: Malignant neoplasm lower lobe, left bronchus COMPARISON: 08/28/2018 FINDINGS: Mild increased uptake is seen in the shoulders bilaterally in a degenerative pattern. No other areas of abnormal uptake of radiotracer are seen throughout the visualized appendicular or axial skeleton. Expected activity is seen in the region of the kidneys bilaterally and in the urinary bladd er. Minimal nonspecific uptake is seen overlying the chest bilaterally. IMPRESSION: No scintigraphic findings seen to suggest osseous metastatic disease.
== END 2019-10-12 08:00 | disposition home or self-care (01) ==
LOC: CT 07:59
PROVIDERS: ATTEND Internal Medicine Hematology & Oncology
DX: C34.32 Malignant neoplasm of lower lobe, left bronchus or lung (principal); K44.9 Diaphragmatic hernia without obstruction or gangrene; N28.1 Cyst of kidney, acquired; K76.89 Other specified diseases of liver; K57.30 Diverticulosis of large intestine without perforation or abscess without bleeding; N40.0 Benign prostatic hyperplasia without lower urinary tract symptoms
CPT/HCPCS: 70470; 71260; 74177; 78306; A9503; Q9967

== ENCOUNTER 2020-03-24 08:29 | Outpatient (CLI) | payer MEDICARE, BC ==
--- NOTE | 2020-03-24 09:57 | CT ---
EXAM: CT chest, abdomen, and pelvis with IV contrast: HISTORY: Follow-up lung cancer. Patient currently on chemotherapy. History of left lower lobectomy. COMPARISON: 10/12/2019 FINDINGS: CT THORAX: Lungs: Postoperative changes of left lower lobectomy are again seen. Patchy parenchymal densities are seen in the left upper lobe similar to prior exam and also similar to studies on 06/22/2019 and 11/27/2018 and likely attributable to mild scarring. Emphysematous changes are again seen in the lungs bilaterally with calcified granulomata also again seen scattered within the lungs. A stable 6 mm pulmonary nodule is seen in the right middle lobe. This pulmonary nodule is also seen on a prior CT e xam on 11/02/2017. Pleura: Minimal amount of pleural fluid at the left lung base is present slightly decreased from prio r study. Lymph nodes: No enlarged lymph nodes are seen by CT size criteria. Mediastinum: Right internal jugular vein Mediport catheter remains in place. Vascular calcifications are seen in the coronary arteries as well as the thoracic aorta. A hiatal hernia is again seen with the fundus and large portion of the body of the stomach above the level of the hemidiaphragms. Small amount of fluid is seen in the posterior mediastinum just above the level of the hiatal hernia. This was also present on prior exam. Calcified left hilar lymph nodes are seen but to prior granuloma tous disease. A heterogeneous nodule is seen in the right lobe of the thyroid gland. This was also seen on prior st udy and also seen on CT thorax on 11/02/2017. Chest wall: Median sternotomy wires and evidence of prior CABG are present. CT ABDOMEN AND PELVIS: Liver: Stable appearing hepatic cysts. Gallbladder: Within normal limits. \ Pancreas: Within normal limits. Spleen: Within normal limits. Adrenal glands: Within normal limits. Kidneys: Stable right renal cyst as well as stable subcentimeter too small to characterize hypodense renal lesion. Urinary Bladder: The urinary bladder is unremarkable. Reproductive organs: Nonspecific heterogeneity of the prostate gland. Bowel: Evidence of colonic diverticulosis. Loops of small bowel are normal in caliber. A few small fa t density foci are seen within the region of the second and third portions of the duodenum which may represent small duodenal lipomas. Adenopathy:No enlarged lymph nodes are seen within the abdomen or pelvis by CT size criteria. Peritoneum: No free fluid or fluid collection is seen. No free intraperitoneal gas is identified. Abdominal wall: Very small fat-containing periumbilical hernia. Osseous structures: No suspicious lytic or sclerotic osseous lesions are identified. Bone island invo lving the inferior aspect right pubic bone is again seen. IMPRESSION: 1. No CT findings to suggest metastatic disease in the chest, abdomen, or pelvis. 2. Stable large hiatal hernia. 3. Stable right upper lobe pulmonary nodule. 4. Colonic diverticulosis. 5. Postoperative changes left hemithorax. 6. Stable hepatic and right renal cysts. 7. Stable heterogeneous nodule right lobe thyroid gland.
[2020-03-24] MEDS ORDERED: Iopamidol 370 76% 100 ML VIAL ONE (10:07)
--- NOTE | 2020-03-24 11:17 | CT ---
CT BRAIN WITH AND WITHOUT CONTRAST: Date: 03/24/2020 INDICATION: History of lung cancer. On chemo. Follow-up. Comparison made to CT head performed with and without contrast on 10/12/2019. FINDINGS: Ventricles have normal size and position. Mild cortical volume loss is stable. No evidence of signifi cant ischemic white matter change. No abnormal enhancement. Paranasal sinuses and mastoids are clear. Bony calvarium is unremarkable. IMPRESSION: No acute finding. No interval change. POS: [facility]
--- NOTE | 2020-03-24 13:04 | NM ---
NUCLEAR MEDICINE BONE SCAN WHOLE BODY: (Skeletal scintigraphy) DATE: 03/24/2020 HISTORY: 75-year-old male with "malignant neoplasm of lower lobe, left bronchus or lung" Right hip pain TECHNIQUE: IV injection of technetium 99m-MDP: 32.4 mCi 3 hour delayed whole body skeletal scintigraphy in anterior and posterior views. FINDINGS: There are no foci of asymmetrically increased uptake that are particularly suspicious for bone metast ases. No interval change since 10/12/2019. No significantly increased uptake in the hips or femur. IMPRESSION: No compelling evidence of skeletal metastasis.
== END 2020-03-24 08:30 | disposition home or self-care (01) ==
LOC: CT 08:29
PROVIDERS: ATTEND Internal Medicine Hematology & Oncology
DX: C34.32 Malignant neoplasm of lower lobe, left bronchus or lung (principal); D50.8 Other iron deficiency anemias; K44.9 Diaphragmatic hernia without obstruction or gangrene; R91.1 Solitary pulmonary nodule; K57.30 Diverticulosis of large intestine without perforation or abscess without bleeding; Z98.890 Other specified postprocedural states; N28.1 Cyst of kidney, acquired; K76.9 Liver disease, unspecified; E04.1 Nontoxic single thyroid nodule
CPT/HCPCS: 70470; 71260; 74177; 78306; A9503

== ENCOUNTER 2020-09-08 08:48 | Outpatient (CLI) | payer MEDICARE, BC ==
[2020-09-08] MEDS ORDERED: Iopamidol-370 76% 500 ML 1 ML ONE (11:01)
== END 2020-09-08 08:49 | disposition home or self-care (01) ==
LOC: BICCT 08:48
PROVIDERS: ATTEND Internal Medicine Hematology & Oncology
DX: C34.32 Malignant neoplasm of lower lobe, left bronchus or lung (principal); D50.8 Other iron deficiency anemias
CPT/HCPCS: 71260; 74177; 82565; Q9967

== ENCOUNTER 2021-03-23 10:16 | Outpatient (CLI) | payer MEDICARE, BC | END 2021-03-23 10:17 | disposition home or self-care (01) | LOC: CT 10:16 | PROVIDERS: ATTEND Internal Medicine Hematology & Oncology | DX: C34.32 Malignant neoplasm of lower lobe, left bronchus or lung (principal); K57.30 Diverticulosis of large intestine without perforation or abscess without bleeding | CPT/HCPCS: 71260; 74177 ==

== ENCOUNTER 2021-04-16 11:05 | Outpatient (CLI) | payer MEDICARE, BC | END 2021-04-16 11:06 | disposition home or self-care (01) | LOC: BICRAD 11:05 | PROVIDERS: ATTEND Physician Assistant | DX: M54.50 Low back pain, unspecified (principal); M25.562 Pain in left knee; R10.32 Left lower quadrant pain; G89.29 Other chronic pain; M47.816 Spondylosis without myelopathy or radiculopathy, lumbar region | CPT/HCPCS: 72100 ==

== ENCOUNTER 2021-04-29 18:46 | Emergency (ER) | payer MEDICARE, BC ==
[2021-04-29] MEDS ORDERED: HYDROcodone/Acetaminophen 10/325 mg Tablet ONE (21:58)
== END 2021-04-29 22:00 | disposition home or self-care (01) ==
LOC: ERS 18:46
DX: G89.29 Other chronic pain (principal); M54.50 Low back pain, unspecified; E78.5 Hyperlipidemia, unspecified; I10 Essential (primary) hypertension
CPT/HCPCS: 99283

== ENCOUNTER 2021-05-01 13:39 | Emergency (ER) | payer MEDICARE, BC ==
[2021-05-01 15:29] LABS: #Lymphocytes 0.7 thou/uL (1.20-3.40); #Monocytes 0.5 thou/uL (0.11-0.59); #Neutrophils 7.2 thou/uL (1.40-6.50); %Basophils 0.2 % (0.0-1.0); %Eosinophils 0.2 % (0.0-10.0); %Lymphocytes 8.7 % (21.0-51.0); %Monocytes 5.6 % (0.0-10.0); %Neutrophils 85.2 % (42.0-75.0); Hemoglobin 12.7 g/dL (14.0-18.0); Mean Corpuscular HGB CONC 34.2 g/dL (32.0-36.0); Mean Corpuscular Hemoglobin 32.2 pg (27.0-31.0); Mean Corpuscular Volume 94.1 fL (78.0-98.0); Mean Platelet Volume 7.2 fL (7.4-10.4); Platelet Count 262 thou/uL (130-400); RBC Distribution Width 12.3 % (11.5-14.5); Red Blood Cell (RBC) Count 3.93 mill/uL (4.70-6.10); White Blood Cell (WBC) Count 8.4 thou/uL (4.8-10.8)
[2021-05-01 15:49] LABS: Bilirubin Negative (Negative); Blood, Urine Negative (Negative); Clarity Clear (Clear); Glucose, Urine (Dipstick) Normal (Negative); Ketone, Urine Negative (Negative); Leukocyte Negative Leu/uL (Negative); Nitrite Negative (Negative); Protein, Urine (Dipstick) Negative (Neg-Trace); Specific Gravity, Urine 1.019 (1.002-1.036); Urobilinogen Normal mg/dL (Less than 2); pH, Urine 5.5 (5.0-9.0)
[2021-05-01 15:50] LABS: ALT (SGPT) 25 U/L (8-55); AST (SGOT) 36 U/L (5-34); Albumin 3.6 g/dL (3.4-4.8); Alkaline Phosphatase 110 U/L (40-110); Anion Gap 12 mmol/L (10-20); BUN (Urea Nitrogen) 21 mg/dL (8.4-25.7); Bilirubin, Total 0.5 mg/dL (0.2-1.2); CK (CPK) 536 U/L (30-200); Calc. Creatinine Clearance 0 mL/min (70-130); Calcium 9.5 mg/dL (7.8-10.44); Carbon Dioxide 26 mmol/L (23-31); Chloride 105 mmol/L (98-107); Globulin 3.3 g/dL (2.4-3.5); Glucose 159 mg/dL (83-110); Protein, Total 6.9 g/dL (5.8-8.1); Sodium 139 mmol/L (136-145)
== END 2021-05-01 16:35 | disposition home or self-care (01) ==
LOC: ERS 13:39
DX: R44.3 Hallucinations, unspecified (principal); E78.5 Hyperlipidemia, unspecified; I10 Essential (primary) hypertension; Z79.82 Long term (current) use of aspirin; Z79.899 Other long term (current) drug therapy
CPT/HCPCS: 70450; 80053; 81003; 82550; 84484; 85025; 93005

== ENCOUNTER 2021-05-05 10:29 | Outpatient (CLI) | payer MEDICARE, BC | END 2021-05-05 10:30 | disposition home or self-care (01) | LOC: MRI 10:29 | PROVIDERS: ATTEND Physician Assistant | DX: M54.41 Lumbago with sciatica, right side (principal); M54.42 Lumbago with sciatica, left side; G89.29 Other chronic pain; M51.26 Other intervertebral disc displacement, lumbar region; M47.816 Spondylosis without myelopathy or radiculopathy, lumbar region; M47.817 Spondylosis without myelopathy or radiculopathy, lumbosacral region; M48.061 Spinal stenosis, lumbar region without neurogenic claudication; M89.9 Disorder of bone, unspecified | CPT/HCPCS: 72148 ==

== ENCOUNTER 2021-05-08 10:22 | Outpatient (CLI) | payer MEDICARE, BC ==
[2021-05-08] MEDS ORDERED: Iopamidol 370 76% 100 ML VIAL ONE (14:41)
== END 2021-05-08 10:23 | disposition home or self-care (01) ==
LOC: PET 10:22
PROVIDERS: ATTEND Internal Medicine Hematology & Oncology
DX: C34.90 Malignant neoplasm of unspecified part of unspecified bronchus or lung (principal)
CPT/HCPCS: 70470; 78815; A9552; Q9967

== ENCOUNTER 2021-05-17 17:28 | Inpatient (IN) | payer MEDICARE, BC ==
[2021-05-17 18:47] LABS: #Eosinphils 0.1 thou/uL (0.0-0.7); #Lymphocytes 0.6 thou/uL (1.20-3.40); #Monocytes 0.9 thou/uL (0.11-0.59); #Neutrophils 8.5 thou/uL (1.40-6.50); %Basophils 0.2 % (0.0-1.0); %Eosinophils 0.6 % (0.0-10.0); %Lymphocytes 6.1 % (21.0-51.0); %Monocytes 9.2 % (0.0-10.0); Hemoglobin 14.2 g/dL (14.0-18.0); Mean Corpuscular HGB CONC 32.4 g/dL (32.0-36.0); Mean Corpuscular Hemoglobin 30.6 pg (27.0-31.0); Mean Corpuscular Volume 94.7 fL (78.0-98.0); Mean Platelet Volume 6.7 fL (7.4-10.4); Platelet Count 297 thou/uL (130-400); RBC Distribution Width 12.2 % (11.5-14.5); Red Blood Cell (RBC) Count 4.65 mill/uL (4.70-6.10); White Blood Cell (WBC) Count 10.2 thou/uL (4.8-10.8)
[2021-05-17] MEDS ORDERED: Morphine 4 MG/ML VIAL ONE (19:02)
[2021-05-17 19:05] LABS: Anion Gap 12 mmol/L (10-20); BUN (Urea Nitrogen) 16 mg/dL (8.4-25.7); CRP (Inflammatory) 2.02 mg/dL (= or < 0.5); Calc. Creatinine Clearance 0 mL/min (70-130); Calcium 8.3 mg/dL (7.8-10.44); Carbon Dioxide 26 mmol/L (23-31); Chloride 105 mmol/L (98-107); Glucose 130 mg/dL (83-110); Potassium 4.2 mmol/L (3.5-5.1); Sodium 139 mmol/L (136-145)
[2021-05-17] MEDS ORDERED: Ondansetron PF 4 MG/2 ML Vial IVP PRN (20:19)
[2021-05-17] MEDS ORDERED: Acetaminophen 325 MG TAB PO PRN (20:19)
[2021-05-17] MEDS ORDERED: HYDROcodone/Acetaminophen 10/325 mg Tablet PO PRN (20:19)
[2021-05-17] MEDS ORDERED: Morphine 4 MG/ML VIAL SLOW IVP PRN (22:52)
[2021-05-17 23:12] VITALS: BMI 26.9
[2021-05-17] MEDS ORDERED: Lisinopril 10 MG TAB PO SCH (23:15)
[2021-05-17] MEDS: Senokot S 8.6-50 MG TAB PO SCH (23:16)
[2021-05-17] MEDS: HYDROcodone/Acetaminophen 5/325 mg Tablet PO PRN (23:17)
[2021-05-18] MEDS: Morphine 4 MG/ML VIAL SLOW IVP PRN ×3 (04:40→17:14)
[2021-05-18] MEDS: HYDROcodone/Acetaminophen 5/325 mg Tablet PO PRN ×5 (06:24→23:22)
[2021-05-18 06:53] LABS: #Eosinphils 0.1 thou/uL (0.0-0.7); #Lymphocytes 0.8 thou/uL (1.20-3.40); #Monocytes 1.1 thou/uL (0.11-0.59); #Neutrophils 6.2 thou/uL (1.40-6.50); %Basophils 0.3 % (0.0-1.0); %Lymphocytes 9.4 % (21.0-51.0); %Monocytes 12.9 % (0.0-10.0); %Neutrophils 76.4 % (42.0-75.0); Hemoglobin 13.7 g/dL (14.0-18.0); Mean Corpuscular HGB CONC 31.9 g/dL (32.0-36.0); Mean Corpuscular Hemoglobin 29.9 pg (27.0-31.0); Mean Corpuscular Volume 93.8 fL (78.0-98.0); Mean Platelet Volume 8.8 fL (7.4-10.4); Platelet Count 262 thou/uL (130-400); RBC Distribution Width 12.5 % (11.5-14.5); Red Blood Cell (RBC) Count 4.57 mill/uL (4.70-6.10); White Blood Cell (WBC) Count 8.2 thou/uL (4.8-10.8)
[2021-05-18] MEDS ORDERED: Morphine ER 15 MG TAB PO SCH (09:00)
[2021-05-18] MEDS ORDERED: Polyethylene Glycol 3350 17 GM Packet PO SCH (09:00)
[2021-05-18 09:51] LABS: SARS-CoV-2 NAA Rapid Test DETECTED (NotDetected)
[2021-05-18] MEDS: Atorvastatin Calcium 40 MG TAB PO SCH (10:08)
[2021-05-18] MEDS: Lisinopril 10 MG TAB PO SCH ×2 (10:09→20:57)
[2021-05-18] MEDS: Ezetimibe 10 MG TAB PO SCH (10:09)
[2021-05-18] MEDS: Enoxaparin Sodium 40 MG/0.4 ML SYRINGE SC SCH (10:09)
[2021-05-18] MEDS: Senokot S 8.6-50 MG TAB PO SCH ×3 (10:11→20:57)
[2021-05-18] MEDS: Polyethylene Glycol 3350 17 GM Packet PO SCH (10:12)
[2021-05-18 11:15] LABS: Chloride 102 mmol/L (98-107); Potassium 3.8 mmol/L (3.5-5.1); Sodium 135 mmol/L (136-145)
[2021-05-18 11:16] LABS: Calcium 8.3 mg/dL (7.8-10.44); Glucose 125 mg/dL (83-110)
[2021-05-18 11:18] LABS: Anion Gap 12 mmol/L (10-20); Carbon Dioxide 25 mmol/L (23-31)
[2021-05-18 11:20] LABS: BUN (Urea Nitrogen) 14 mg/dL (8.4-25.7); Calc. Creatinine Clearance 95 mL/min (70-130)
[2021-05-18] MEDS: Aspirin 81 mg Enteric Coated Tablet PO SCH (20:55)
[2021-05-18] MEDS: Morphine ER 15 MG TAB PO SCH (20:56)
[2021-05-18] MEDS: Melatonin 3 MG TAB PO SCH (20:57)
[2021-05-19] MEDS: Morphine 4 MG/ML VIAL SLOW IVP PRN ×3 (01:39→16:28)
[2021-05-19] MEDS: ALPRAZolam 0.25 MG TAB PO PRN ×2 (02:54→16:13)
[2021-05-19] MEDS: Morphine ER 15 MG TAB PO SCH ×3 (05:50→20:30)
[2021-05-19 06:34] LABS: #Eosinphils 0.1 thou/uL (0.0-0.7); #Lymphocytes 0.7 thou/uL (1.20-3.40); #Monocytes 0.9 thou/uL (0.11-0.59); %Basophils 0.2 % (0.0-1.0); %Eosinophils 1.3 % (0.0-10.0); %Lymphocytes 10.8 % (21.0-51.0); %Monocytes 13.4 % (0.0-10.0); %Neutrophils 74.3 % (42.0-75.0); Hemoglobin 14.6 g/dL (14.0-18.0); Mean Corpuscular HGB CONC 32.8 g/dL (32.0-36.0); Mean Corpuscular Hemoglobin 30.7 pg (27.0-31.0); Mean Corpuscular Volume 93.7 fL (78.0-98.0); Platelet Count 295 thou/uL (130-400); RBC Distribution Width 12.1 % (11.5-14.5); Red Blood Cell (RBC) Count 4.75 mill/uL (4.70-6.10); White Blood Cell (WBC) Count 6.7 thou/uL (4.8-10.8)
[2021-05-19] MEDS: HYDROcodone/Acetaminophen 5/325 mg Tablet PO PRN ×3 (06:34→16:55)
[2021-05-19 06:52] LABS: Anion Gap 11 mmol/L (10-20); BUN (Urea Nitrogen) 14 mg/dL (8.4-25.7); Calc. Creatinine Clearance 85 mL/min (70-130); Calcium 8.5 mg/dL (7.8-10.44); Carbon Dioxide 27 mmol/L (23-31); Chloride 103 mmol/L (98-107); Glucose 128 mg/dL (83-110); Potassium 4.1 mmol/L (3.5-5.1); Sodium 137 mmol/L (136-145)
[2021-05-19] MEDS: Lisinopril 10 MG TAB PO SCH (09:00)
[2021-05-19] MEDS: Polyethylene Glycol 3350 17 GM Packet PO SCH (09:00)
[2021-05-19] MEDS: Senokot S 8.6-50 MG TAB PO SCH ×2 (09:00→20:29)
[2021-05-19] MEDS: Enoxaparin Sodium 40 MG/0.4 ML SYRINGE SC SCH (09:00)
[2021-05-19] MEDS: Ezetimibe 10 MG TAB PO SCH ×3 (09:00→10:21)
[2021-05-19] MEDS: Venlafaxine HCl XR 150 MG CAP PO SCH (09:00)
[2021-05-19] MEDS: Atorvastatin Calcium 40 MG TAB PO SCH (09:00)
[2021-05-19] MEDS ORDERED: Naloxone HCl 0.4 mg/ml Vial IV PRN ×2 (13:58→18:00)
[2021-05-19] MEDS ORDERED: Ondansetron PF 4 MG/2 ML Vial IVP PRN ×4 (13:58→18:00)
[2021-05-19] MEDS ORDERED: diphenhydrAMINE 50 MG/ML VIAL IM PRN ×2 (13:58→18:00)
[2021-05-19] MEDS ORDERED: diphenhydrAMINE 50 MG/ML VIAL IVP PRN ×2 (13:58→18:00)
[2021-05-19] MEDS ORDERED: diphenhydrAMINE 25 MG CAP PO PRN ×2 (13:58→18:00)
[2021-05-19] MEDS ORDERED: Zolpidem Tartrate 5 MG TAB PO PRN ×2 (13:58→18:00)
[2021-05-19] MEDS ORDERED: Promethazine HCl 25 MG/ML VIAL IM PRN ×2 (13:58→18:00)
[2021-05-19] MEDS ORDERED: Communication Order-Pharmacy FS SCH (14:00)
[2021-05-19] MEDS ORDERED: [UNRECOGNIZED DRUG - OTHER] FS SCH (14:15)
[2021-05-19] MEDS ORDERED: Morphine CADD 1 MG/ML CADD IVPB PRN (18:00)
[2021-05-19] MEDS: Aspirin 81 mg Enteric Coated Tablet PO SCH (20:29)
[2021-05-19] MEDS: Melatonin 3 MG TAB PO SCH (20:30)
[2021-05-20] MEDS: Morphine ER 15 MG TAB PO SCH ×3 (02:14→22:19)
[2021-05-20 06:32] LABS: Hemoglobin 13.2 g/dL (14.0-18.0); Mean Corpuscular HGB CONC 32.2 g/dL (32.0-36.0); Mean Corpuscular Hemoglobin 30.8 pg (27.0-31.0); Mean Corpuscular Volume 95.7 fL (78.0-98.0); Platelet Count 283 thou/uL (130-400); RBC Distribution Width 12.2 % (11.5-14.5); Red Blood Cell (RBC) Count 4.27 mill/uL (4.70-6.10); White Blood Cell (WBC) Count 6.3 thou/uL (4.8-10.8)
[2021-05-20] MEDS: ALPRAZolam 0.25 MG TAB PO PRN (06:43)
[2021-05-20 06:48] LABS: Anion Gap 12 mmol/L (10-20); BUN (Urea Nitrogen) 16 mg/dL (8.4-25.7); Calc. Creatinine Clearance 86 mL/min (70-130); Calcium 7.9 mg/dL (7.8-10.44); Carbon Dioxide 26 mmol/L (23-31); Chloride 104 mmol/L (98-107); Glucose 134 mg/dL (83-110); Potassium 3.5 mmol/L (3.5-5.1); Sodium 138 mmol/L (136-145)
[2021-05-20] MEDS: Senokot S 8.6-50 MG TAB PO SCH ×2 (08:13→22:16)
[2021-05-20] MEDS: Polyethylene Glycol 3350 17 GM Packet PO SCH (08:13)
[2021-05-20] MEDS: Atorvastatin Calcium 40 MG TAB PO SCH (08:14)
[2021-05-20] MEDS: Lisinopril 10 MG TAB PO SCH ×2 (08:14→22:15)
[2021-05-20] MEDS: Venlafaxine HCl XR 150 MG CAP PO SCH (08:14)
[2021-05-20] MEDS: Ezetimibe 10 MG TAB PO SCH (08:15)
[2021-05-20] MEDS: Enoxaparin Sodium 40 MG/0.4 ML SYRINGE SC SCH (08:34)
[2021-05-20 10:46] LABS: Eosinophils 2 % (0-10); Lymphocytes 9 % (21-51); MDiff Complete? YES; Monocytes 5 % (0-10); Neutrophil 82 % (42-75); Ovalocytes SLIGHT = 2-5 cells (100X) (0-1/hpf); Platelet Morphology Comment Appears Adequate; Reactive Lymphocytes 1 % (0-10); Small Platelets MODERATE
[2021-05-20] MEDS: Aspirin 81 mg Enteric Coated Tablet PO SCH (22:15)
[2021-05-20] MEDS: Melatonin 3 MG TAB PO SCH (22:17)
[2021-05-21] MEDS ORDERED: Lidocaine-Prilocaine 2.5% Cream 5 GM TUBE TOP PRN (01:14)
[2021-05-21] MEDS: Morphine ER 15 MG TAB PO SCH ×3 (06:22→22:14)
[2021-05-21] MEDS: Senokot S 8.6-50 MG TAB PO SCH ×3 (08:51→22:14)
[2021-05-21] MEDS: Polyethylene Glycol 3350 17 GM Packet PO SCH (08:51)
[2021-05-21] MEDS: Atorvastatin Calcium 40 MG TAB PO SCH (08:52)
[2021-05-21] MEDS: Lisinopril 10 MG TAB PO SCH ×2 (08:52→19:25)
[2021-05-21] MEDS: Venlafaxine HCl XR 150 MG CAP PO SCH (08:52)
[2021-05-21] MEDS: Ezetimibe 10 MG TAB PO SCH (08:55)
[2021-05-21] MEDS ORDERED: FLU VACC QS2021-22(65YR UP)/PF 240 MCG/0.7 ML SYRINGE IM ONE (09:00)
[2021-05-21] MEDS: Enoxaparin Sodium 40 MG/0.4 ML SYRINGE SC SCH (09:24)
[2021-05-21] MEDS ORDERED: Morphine CADD 100 ML IVPB SCH (10:30)
[2021-05-21] MEDS ORDERED: ADMIXTURE FEE IV SCH (10:30)
[2021-05-21] MEDS ORDERED: [UNRECOGNIZED DRUG - OTHER] IV SCH (10:30)
[2021-05-21] MEDS: Morphine Sulfate 100 MG in Dextrose 5% in Water 98 ML IV SCH (11:24)
[2021-05-21] MEDS: ALPRAZolam 0.5 MG TAB PO PRN (19:19)
[2021-05-21] MEDS: Aspirin 81 mg Enteric Coated Tablet PO SCH (19:27)
[2021-05-21] MEDS: Melatonin 3 MG TAB PO SCH (22:14)
[2021-05-22] MEDS: Morphine ER 15 MG TAB PO SCH ×3 (05:56→21:20)
[2021-05-22] MEDS: ALPRAZolam 0.5 MG TAB PO PRN (05:58)
[2021-05-22] MEDS: Lisinopril 10 MG TAB PO SCH ×2 (08:40→21:20)
[2021-05-22] MEDS: Venlafaxine HCl XR 150 MG CAP PO SCH (08:40)
[2021-05-22] MEDS: Atorvastatin Calcium 40 MG TAB PO SCH (08:41)
[2021-05-22] MEDS: Enoxaparin Sodium 40 MG/0.4 ML SYRINGE SC SCH (08:41)
[2021-05-22] MEDS: Polyethylene Glycol 3350 17 GM Packet PO SCH (08:48)
[2021-05-22] MEDS: Melatonin 3 MG TAB PO SCH (21:20)
[2021-05-22] MEDS: Aspirin 81 mg Enteric Coated Tablet PO SCH (21:20)
[2021-05-22] MEDS: Senokot S 8.6-50 MG TAB PO SCH (21:20)
[2021-05-23] MEDS: Morphine ER 15 MG TAB PO SCH ×3 (05:25→21:05)
[2021-05-23] MEDS: Atorvastatin Calcium 40 MG TAB PO SCH (10:00)
[2021-05-23] MEDS: Ezetimibe 10 MG TAB PO SCH (10:01)
[2021-05-23] MEDS: Senokot S 8.6-50 MG TAB PO SCH ×2 (10:01→21:05)
[2021-05-23] MEDS: Venlafaxine HCl XR 150 MG CAP PO SCH (10:02)
[2021-05-23] MEDS: Lisinopril 10 MG TAB PO SCH ×2 (10:02→21:05)
[2021-05-23] MEDS: Polyethylene Glycol 3350 17 GM Packet PO SCH (10:03)
[2021-05-23] MEDS: Enoxaparin Sodium 40 MG/0.4 ML SYRINGE SC SCH (10:04)
[2021-05-23] MEDS: Morphine Sulfate 100 MG in Dextrose 5% in Water 98 ML IV SCH (14:37)
[2021-05-23] MEDS: Pregabalin 50 MG CAP PO SCH (21:05)
[2021-05-23] MEDS: Gabapentin 300 MG CAP PO SCH (21:05)
[2021-05-23] MEDS: Aspirin 81 mg Enteric Coated Tablet PO SCH (21:05)
[2021-05-23] MEDS: Melatonin 3 MG TAB PO SCH (21:05)
[2021-05-24] MEDS: Morphine ER 15 MG TAB PO SCH ×3 (07:00→21:15)
[2021-05-24 07:22] LABS: #Eosinphils 0.2 thou/uL (0.0-0.7); #Lymphocytes 0.6 thou/uL (1.20-3.40); #Neutrophils 5.4 thou/uL (1.40-6.50); %Basophils 0.3 % (0.0-1.0); %Eosinophils 2.2 % (0.0-10.0); %Lymphocytes 8.7 % (21.0-51.0); %Monocytes 13.6 % (0.0-10.0); %Neutrophils 75.3 % (42.0-75.0); Hemoglobin 12.7 g/dL (14.0-18.0); Mean Corpuscular HGB CONC 32.9 g/dL (32.0-36.0); Mean Corpuscular Hemoglobin 30.7 pg (27.0-31.0); Mean Corpuscular Volume 93.2 fL (78.0-98.0); Platelet Count 282 thou/uL (130-400); RBC Distribution Width 11.8 % (11.5-14.5); Red Blood Cell (RBC) Count 4.13 mill/uL (4.70-6.10); White Blood Cell (WBC) Count 7.1 thou/uL (4.8-10.8)
[2021-05-24 07:36] LABS: Anion Gap 11 mmol/L (10-20); BUN (Urea Nitrogen) 9 mg/dL (8.4-25.7); Calc. Creatinine Clearance 95 mL/min (70-130); Calcium 8.1 mg/dL (7.8-10.44); Carbon Dioxide 28 mmol/L (23-31); Chloride 102 mmol/L (98-107); Glucose 146 mg/dL (83-110); Potassium 3.6 mmol/L (3.5-5.1); Sodium 137 mmol/L (136-145)
[2021-05-24] MEDS: Enoxaparin Sodium 40 MG/0.4 ML SYRINGE SC SCH (08:09)
[2021-05-24] MEDS: Senokot S 8.6-50 MG TAB PO SCH ×2 (10:20→21:16)
[2021-05-24] MEDS: Atorvastatin Calcium 40 MG TAB PO SCH (10:21)
[2021-05-24] MEDS: Gabapentin 300 MG CAP PO SCH ×2 (10:22→15:33)
[2021-05-24] MEDS: Venlafaxine HCl XR 150 MG CAP PO SCH (10:22)
[2021-05-24] MEDS: Lisinopril 10 MG TAB PO SCH ×2 (10:25→21:15)
[2021-05-24] MEDS: Pregabalin 50 MG CAP PO SCH ×3 (10:25→21:15)
[2021-05-24] MEDS: Ezetimibe 10 MG TAB PO SCH (10:27)
[2021-05-24] MEDS: Polyethylene Glycol 3350 17 GM Packet PO SCH (10:27)
[2021-05-24] MEDS: Aspirin 81 mg Enteric Coated Tablet PO SCH (21:14)
[2021-05-24] MEDS: Melatonin 3 MG TAB PO SCH (21:16)
[2021-05-25] MEDS: oxyCODONE/Acetaminophen 5 mg/325 mg Tablet PO PRN (03:15)
[2021-05-25] MEDS: Morphine ER 15 MG TAB PO SCH ×3 (05:05→21:01)
[2021-05-25 05:48] LABS: Anion Gap 12 mmol/L (10-20); BUN (Urea Nitrogen) 9 mg/dL (8.4-25.7); Calc. Creatinine Clearance 97 mL/min (70-130); Calcium 8.2 mg/dL (7.8-10.44); Carbon Dioxide 25 mmol/L (23-31); Chloride 104 mmol/L (98-107); Glucose 108 mg/dL (83-110); Potassium 3.6 mmol/L (3.5-5.1); Sodium 137 mmol/L (136-145)
[2021-05-25 06:11] LABS: Hemoglobin 12.3 g/dL (14.0-18.0); Mean Corpuscular HGB CONC 33.1 g/dL (32.0-36.0); Mean Corpuscular Volume 93.6 fL (78.0-98.0); Platelet Count 286 thou/uL (130-400); RBC Distribution Width 11.8 % (11.5-14.5); Red Blood Cell (RBC) Count 3.97 mill/uL (4.70-6.10); White Blood Cell (WBC) Count 6.6 thou/uL (4.8-10.8)
[2021-05-25] MEDS: Atorvastatin Calcium 40 MG TAB PO SCH (08:36)
[2021-05-25] MEDS: Venlafaxine HCl XR 150 MG CAP PO SCH (08:37)
[2021-05-25] MEDS: Enoxaparin Sodium 40 MG/0.4 ML SYRINGE SC SCH (08:41)
[2021-05-25] MEDS: Ezetimibe 10 MG TAB PO SCH (08:41)
[2021-05-25] MEDS: Lisinopril 10 MG TAB PO SCH ×2 (08:41→21:01)
[2021-05-25] MEDS: Polyethylene Glycol 3350 17 GM Packet PO SCH (08:42)
[2021-05-25] MEDS: Pregabalin 50 MG CAP PO SCH ×3 (08:42→21:01)
[2021-05-25] MEDS: Senokot S 8.6-50 MG TAB PO SCH ×2 (08:43→21:01)
[2021-05-25 10:39] LABS: Band 4 % (5-11); Lymphocytes 10 % (21-51); MDiff Complete? YES; Monocytes 10 % (0-10); Neutrophil 73 % (42-75); Platelet Morphology Comment Appears Adequate; RBC Morphology Normal; Reactive Lymphocytes 2 % (0-10)
[2021-05-25] MEDS: Aspirin 81 mg Enteric Coated Tablet PO SCH (21:01)
[2021-05-25] MEDS: Melatonin 3 MG TAB PO SCH (21:01)
[2021-05-26] MEDS: oxyCODONE/Acetaminophen 5 mg/325 mg Tablet PO PRN (02:04)
[2021-05-26] MEDS: Morphine ER 15 MG TAB PO SCH ×3 (05:24→21:05)
[2021-05-26 06:41] LABS: #Eosinphils 0.1 thou/uL (0.0-0.7); #Lymphocytes 0.7 thou/uL (1.20-3.40); #Neutrophils 4.9 thou/uL (1.40-6.50); %Basophils 0.6 % (0.0-1.0); %Eosinophils 2.1 % (0.0-10.0); %Lymphocytes 10.2 % (21.0-51.0); %Monocytes 14.4 % (0.0-10.0); %Neutrophils 72.7 % (42.0-75.0); Hemoglobin 13.2 g/dL (14.0-18.0); Mean Corpuscular HGB CONC 33.3 g/dL (32.0-36.0); Mean Corpuscular Hemoglobin 30.9 pg (27.0-31.0); Mean Corpuscular Volume 92.8 fL (78.0-98.0); Mean Platelet Volume 7.2 fL (7.4-10.4); Platelet Count 309 thou/uL (130-400); RBC Distribution Width 11.9 % (11.5-14.5); Red Blood Cell (RBC) Count 4.26 mill/uL (4.70-6.10); White Blood Cell (WBC) Count 6.7 thou/uL (4.8-10.8)
[2021-05-26 07:02] LABS: Anion Gap 12 mmol/L (10-20); BUN (Urea Nitrogen) 10 mg/dL (8.4-25.7); Calc. Creatinine Clearance 93 mL/min (70-130); Calcium 8.6 mg/dL (7.8-10.44); Carbon Dioxide 28 mmol/L (23-31); Chloride 102 mmol/L (98-107); Glucose 108 mg/dL (83-110); Potassium 3.8 mmol/L (3.5-5.1); Sodium 138 mmol/L (136-145)
[2021-05-26] MEDS: Ezetimibe 10 MG TAB PO SCH (09:02)
[2021-05-26] MEDS: Lisinopril 10 MG TAB PO SCH ×2 (09:02→21:05)
[2021-05-26] MEDS: Pregabalin 50 MG CAP PO SCH ×3 (09:02→21:05)
[2021-05-26] MEDS: Venlafaxine HCl XR 150 MG CAP PO SCH (09:02)
[2021-05-26] MEDS: Atorvastatin Calcium 40 MG TAB PO SCH (09:02)
[2021-05-26] MEDS: Polyethylene Glycol 3350 17 GM Packet PO SCH (09:03)
[2021-05-26] MEDS: Senokot S 8.6-50 MG TAB PO SCH (09:03)
[2021-05-26] MEDS: Enoxaparin Sodium 40 MG/0.4 ML SYRINGE SC SCH (09:03)
[2021-05-26] MEDS: ALPRAZolam 0.5 MG TAB PO PRN (18:31)
[2021-05-26] MEDS: Aspirin 81 mg Enteric Coated Tablet PO SCH (21:05)
[2021-05-26] MEDS: Melatonin 3 MG TAB PO SCH (21:05)
[2021-05-27] MEDS: oxyCODONE/Acetaminophen 5 mg/325 mg Tablet PO PRN (04:15)
[2021-05-27] MEDS: Morphine ER 15 MG TAB PO SCH ×2 (06:43→15:31)
[2021-05-27 07:30] LABS: Hemoglobin 13.2 g/dL (14.0-18.0); Mean Corpuscular HGB CONC 32.8 g/dL (32.0-36.0); Mean Corpuscular Hemoglobin 30.6 pg (27.0-31.0); Mean Corpuscular Volume 93.2 fL (78.0-98.0); Mean Platelet Volume 7.2 fL (7.4-10.4); Platelet Count 326 thou/uL (130-400); RBC Distribution Width 11.9 % (11.5-14.5); Red Blood Cell (RBC) Count 4.33 mill/uL (4.70-6.10); White Blood Cell (WBC) Count 7.4 thou/uL (4.8-10.8)
[2021-05-27 07:35] LABS: Anion Gap 13 mmol/L (10-20); BUN (Urea Nitrogen) 10 mg/dL (8.4-25.7); Calc. Creatinine Clearance 93 mL/min (70-130); Calcium 8.4 mg/dL (7.8-10.44); Carbon Dioxide 26 mmol/L (23-31); Chloride 102 mmol/L (98-107); Glucose 116 mg/dL (83-110); Potassium 3.5 mmol/L (3.5-5.1); Sodium 137 mmol/L (136-145)
[2021-05-27] MEDS: ALPRAZolam 0.5 MG TAB PO PRN (08:26)
[2021-05-27] MEDS: Pregabalin 50 MG CAP PO SCH ×2 (08:27→14:19)
[2021-05-27] MEDS: Venlafaxine HCl XR 150 MG CAP PO SCH (08:27)
[2021-05-27] MEDS: Lisinopril 10 MG TAB PO SCH (08:28)
[2021-05-27] MEDS: Atorvastatin Calcium 40 MG TAB PO SCH (08:28)
[2021-05-27] MEDS: Ezetimibe 10 MG TAB PO SCH (08:29)
[2021-05-27] MEDS: Enoxaparin Sodium 40 MG/0.4 ML SYRINGE SC SCH (08:33)
[2021-05-27] MEDS: Polyethylene Glycol 3350 17 GM Packet PO SCH (08:33)
[2021-05-27] MEDS ORDERED: Senokot S 8.6-50 MG TAB PO SCH (09:00)
[2021-05-27 10:29] LABS: Band 6 % (5-11); Lymphocytes 13 % (21-51); MDiff Complete? YES; Monocytes 12 % (0-10); Neutrophil 68 % (42-75); Platelet Morphology Comment Appears Adequate; RBC Morphology Normal
[2021-05-27 12:44] VITALS: BP 154/91; TEMP 98.3
== END 2021-05-27 15:42 | DRG 542 ==
LOC: ERS 17:28 → MSONC 20:19 → T4-B 05-18 13:26 → OBSVTOIN 05-19 11:15
PROVIDERS: ADMIT Internal Medicine; ATTEND Internal Medicine
PROC: 8E0ZXY6 Isolation (ICD-10-PCS; principal; 2021-05-19)
DX: M84.58XA Pathological fracture in neoplastic disease, other specified site, initial encounter for fracture (principal); U07.1 COVID-19; C79.51 Secondary malignant neoplasm of bone; C34.92 Malignant neoplasm of unspecified part of left bronchus or lung; Z23 Encounter for immunization; Z51.5 Encounter for palliative care; E78.5 Hyperlipidemia, unspecified; I25.10 Atherosclerotic heart disease of native coronary artery without angina pectoris; D63.0 Anemia in neoplastic disease; F41.9 Anxiety disorder, unspecified; E11.51 Type 2 diabetes mellitus with diabetic peripheral angiopathy without gangrene; K57.90 Diverticulosis of intestine, part unspecified, without perforation or abscess without bleeding; K76.89 Other specified diseases of liver; N28.1 Cyst of kidney, acquired; K59.00 Constipation, unspecified; Z87.891 Personal history of nicotine dependence; Z95.0 Presence of cardiac pacemaker; Z79.01 Long term (current) use of anticoagulants; Z79.82 Long term (current) use of aspirin; Z79.899 Other long term (current) drug therapy
CPT/HCPCS: 36415; 36416; 72170; 74176; 77386; 80048; 85025; 86140; 96372; 96374; 96376; G0378; J1650; J2270; J2274; J7070; U0002